=== PATIENT | female | born 1945 | race Caucasian/White ===

== ENCOUNTER 2016-09-19 13:16 | Emergency (ER) | payer MEDICARE, OTHER ==
[2016-09-19 14:31] LABS: BASO # 0.1 K/mm3 (0.0-0.2); BASO % 1.4 % (0.0-1.0); EOS # 0.1 K/mm3 (0.0-0.50); LARGE UNSTAINED CELL # 0.3 K/mm3 (0.0-0.4); LARGE UNSTAINED CELL % 3.3 % (0.0-4.0); LYMPH # 1.8 K/mm3 (1.5-4.5); LYMPH % 19.7 % (24.0-44.0); MEAN CORPUSCULAR HEMOGLOBIN 28.7 pg (27.0-33.0); MEAN CORPUSCULAR HGB CONC 33.1 g/dl (32.0-36.5); MEAN CORPUSCULAR VOLUME 86.6 fl (80.0-96.0); MONO # 0.6 K/mm3 (0.0-0.8); NEUTROPHILS # 5.1 K/mm3 (1.8-7.7); NEUTROPHILS % 66.5 % (36.0-66.0); PLATELET COUNT, AUTOMATED 268 k/mm3 (150-450); RED CELL DISTRIBUTION WIDTH 13.9 % (11.5-14.5); WHITE BLOOD COUNT 7.7 K/mm3 (4.0-10.0)
[2016-09-19 14:44] LABS: ANION GAP 9 MEQ/L (8-16); BLOOD UREA NITROGEN 12 MG/DL (7-18); CALCIUM LEVEL 8.8 MG/DL (8.8-10.2); CARBON DIOXIDE LEVEL 30 MEQ/L (21-32); CHLORIDE LEVEL 102 MEQ/L (98-107); CREATININE FOR GFR 0.98 MG/DL (0.55-1.02); FREE T4 1.12 NG/DL (0.76-1.46); GLOMERULAR FILTRATION RATE 59.9 (>45); GLUCOSE, FASTING 91 MG/DL (80-110); POTASSIUM SERUM 3.9 MEQ/L (3.5-5.1); SODIUM LEVEL 141 MEQ/L (136-145)
--- NOTE | 2016-09-19 14:45 | REP ---
HEAD CT WITHOUT CONTRAST: HISTORY: Trauma. FINDINGS: Digital frontal and lateral city maintenance manager views are unremarkable. Bone window settings demonstrate an intact bony calvarium. No skull fracture is seen. The visualized paranasal sinuses are clear. No intraorbital abnormality is appreciated. On soft tissue window settings, the lateral, third, and fourth ventricles are normal in size and position. The gaytan-white differentiation pattern is normal above and below the tentorium. There is no evidence of intracranial hemorrhage. No extra-axial fluid collection is seen. IMPRESSION: Negative noncontrast head CT. Signed by Aguilar Reddy MD 09/19/2016 07:28 P
--- NOTE | 2016-09-19 14:49 | REP ---
MAXILLOFACIAL CT STUDY WITHOUT CONTRAST: HISTORY: Trauma. TECHNIQUE: Helical scanning is acquired and contiguous [address] images are acquired. The scan range is from the top of the frontal sinuses through the mandible. Coronal and sagittal multiplanar reformation images are generated as well. CT FINDINGS: There is right frontal soft tissue scalp swelling. No frontal bone or frontal sinus fracture is seen. The paranasal sinuses are clear. The zygomatic arches are intact. Orbital margins are normal. No nasal bone fracture is seen. Inferior maxillary spine is intact. No mandibular fracture is seen. There is no evidence of intraorbital, facial or intracranial hematoma. IMPRESSION: Right frontal scalp swelling. No fracture seen. Signed by Aguilar Reddy MD 09/19/2016 07:28 P
--- NOTE | 2016-09-19 19:44 | EDDOCDS ---
Nurse's Notes [facility] Name: Aileen Cervantes Age: 71 yrs Sex: Female : 1945 Arrival Date: 09/19/2016 Time: 13:16 Bed 19 Private MD: Mamie Tiwari PA-C Diagnosis: Syncope and collapse-vasovagal episode;Dehydration-resolved;Contusion of scalp-right forehead;Contusion of nose;Abrasion of nose;Acute upper respiratory infection, unspecified-viral Presentation: 09/19 13:29 Presenting complaint: Patient states: URI symptoms since around [place]. taking OTC srm meds. this am [id number] felt nauseated, went in to the bathroom and felt dizzy and went down. passed out a second time within minutes and hit head. abrasion to bridge of nose, forehead right side and neck pain. not n blood thinners. Adult Sepsis Screening: The patient does not have new or worsening altered mentation. Patient's respiratory rate is less than 22. Systolic blood pressure is greater than 100. Patient has a qSOFA score of 0- Negative Sepsis Screen. Suicide/Homicide risk assessment- the patient denies having any suicidal and/or homicidal ideations and does not present with any other emotional, behavioral or mental health complaints. Status: Patient is not a financial services sales representative or dependent. Transition of care: patient was not received from another setting of care. 13:29 Acuity: FABIAN Level 3 srm 13:29 Method Of Arrival: Wheelchair srm 13:31 Red Flag criteria, wheelchair provided, room number obtained, charge nurse notified, to [facility] place in room 19 after triage complete. Triage Assessment: 13:36 General: Appears in no apparent distress, Behavior is appropriate for age, cooperative. srm Pain: Pain currently is 6 out of 10 on a pain scale. Neurological: Level of Consciousness is awake, alert, Oriented to person, place, time, Moves all extremities. Full function Speech is normal, Facial symmetry appears normal. Historical: - Allergies: Keflex; Morphine; - Home Meds: 1. levothyroxine 88 mcg Oral cap 1 cap once daily 2. aspirin 81 mg Oral chew 1 tab once daily 3. triametarene- hctz 37.5mg/25mg daily 4. allopurinol 100 mg Oral tab once daily 5. Nexium 40 mg Oral cpDR 1 cap once daily 6. atorvastatin 40 mg oral tab 1 tab once daily 7. colarys 0.6mg as needed - PMHx: Thyroid problem; Hypertension; Pancreatitis; GERD; - PSHx: Cholecystectomy; - The history from nurses notes was reviewed: and I agree with what is documented. - Social history: Smoking status: Patient states was never smoker of tobacco. No barriers to communication noted, The patient speaks fluent Romansh, Speaks appropriately for age. - : The pt / caregiver states he / she is not on anticoagulants. Home medication list is obtained from the patient. - Hospitalizations: : No recent hospitalization is reported. - Exposure Risk Screening:: None identified. - Immunization history:: All immunizations up-to-date. - Family history: Not pertinent. - Social history:: the patient is a non-smoker, the patient does not drink alcohol. Assessment: 14:11 General: Appears intermittent cough noted. Neurological: Level of Consciousness is ms2 awake, alert, obeys commands, Oriented to person, place, time, Pupils are PERRLA. Cardiovascular: Rhythm is sinus tachycardia No ectopy. Respiratory: No deficits noted. Airway is patent Respiratory effort is even, unlabored, Respiratory pattern is regular, symmetrical. Derm: No deficits noted. Skin is pink, warm & dry. 15:38 Adult Sepsis Screening: The patient does not have new or worsening altered mentation. ms2 Patient's respiratory rate is less than 22. Systolic blood pressure is greater than 100. Patient has a qSOFA score of 0- Negative Sepsis Screen. General: Appears in no apparent distress. Neurological: No deficits noted. Cardiovascular: Rhythm is sinus tachycardia. Respiratory: No deficits noted. Derm: Skin is pink, warm & dry. Musculoskeletal: No deficits noted. 16:24 General: Appears in no apparent distress, comfortable, back from BR. Behavior is ms2 cooperative, pleasant. Pain: Denies pain. Neurological: Level of Consciousness is awake, alert, obeys commands. Respiratory: No deficits noted. Airway is patent Respiratory effort is even, unlabored, Respiratory pattern is regular, symmetrical. GI: Abdomen is flat, non- distended. Derm: Skin is pink, warm & dry. Musculoskeletal: Range of motion intact in all extremities. Vital Signs: 13:19 BP 156 / 84; Pulse 113; Resp 18; Temp 98.9; Pulse Ox 98% on R/A; Weight 75.3 kg; Height elp 5 ft. 6 in. (167.64 cm); Pain 6/10; 15:38 BP 151 / 73 Standing; Pulse 116; Resp 20 S; ms2 15:38 BP 155 / 83 Supine; Pulse 99; Resp 20 S; Pulse Ox 95% on R/A; ms2 15:38 BP 146 / 67 Sitting; Pulse 110; Resp 20 S; Pulse Ox 94% on R/A; ms2 17:40 BP 161 / 82; Pulse 96; Resp 20 S; Pulse Ox 96% on R/A; ms2 13:19 Body Mass Index 26.79 (75.30 kg, 167.64 cm) elp 15:38 dr coelho aware of vs ms2 Vitals: 13:19 Log In Time: September 19, 2016 at 13:17. RN notified that patient meets Red Flag elp criteria. ED Course: 13:18 Patient visited by Val Wallace PCA. elp 13:18 Mamie Tiwari is Private Physician. elp 13:18 Patient moved to Waiting elp 13:20 Patient visited by Val Wallace PCA. elp 13:23 Patient moved to Pre RCE elp 13:32 Triage Initiated srm 13:36 Kody Feliciano,RN is Primary Nurse. srm 13:36 Patient moved to 19 srm 14:06 Joel Coelho MD is Attending Physician. pc 14:10 Patient visited by Kody Feliciano RN. ms2 14:10 Inserted saline lock: 20 gauge in right antecubital area The patient tolerated the ms2 procedure well. No procedures done that require assistance. 14:11 The patient / caregiver is instructed regarding the plan of care and ED course. Cardiac ms2 monitor on. Pulse ox on. NIBP on. 14:18 Patient visited by Joel Coelho MD. pc 14:25 Basic Metabolic Profile Sent. ms2 14:25 CBC with Diff Sent. ms2 14:25 Cardiac Injury Profile Sent. ms2 14:25 Troponin Sent. ms2 14:25 TSH with Free T4 Sent. ms2 14:43 -Influenza A&B Rapid Antigen - Nose Sent. ms2 14:50 EKG done. (by ED staff). Reviewed by Joel Coelho MD. rn1 15:29 CT Head Without Contrast Returned. EDMS 15:29 CT Maxilofacial W/out Contrast Returned. EDMS 15:38 Patient visited by Kody Feliciano RN. ms2 15:38 The patient / caregiver is instructed regarding the plan of care and ED course. Cardiac ms2 monitor on. Pulse ox on. NIBP on. 15:38 IV is intact, is free of redness or swelling. ms2 16:27 The patient / caregiver is instructed regarding the plan of care and ED course. Cardiac ms2 monitor on. Pulse ox on. NIBP on. 16:27 IV is patent, is intact, is free of redness or swelling. solution is infusing as ms2 ordered. 16:29 Patient visited by Kody Feliciano RN. ms2 16:34 Patient name changed from Aileen\S\\S\Calladine\S\ to Aileen\S\ \S\Calladine. EDMS 16:35 [facility] [place] Payment Agreement was scanned into [employer] and attached to record. zo 17:40 Patient visited by Kody Feliciano RN. ms2 18:56 Patient visited by Joel Coelho MD. pc 19:04 Mamie Tiwari RPA-C is Referral Physician. pc 19:07 Patient visited by Keith Joseph PCA. [id number] Administered Medications: 16:18 Drug: NS 0.9% 1000 ml [sodium chloride 0.9 % intravenous solution] Route: IV; Rate: ms2 bolus; Site: right antecubital; Intake: 17:40 PO: 0.00ml; IV: 1000.00ml (NS); Total: 1000.00ml. ms2 17:40 voided x1 in ed ms2 Order Results: Lab Order: Basic Metabolic Profile; SPEC'M 09/19/16 13:55 Test: GLUCOSE, FASTING; Value: 91; Range: 80-110; Units: MG/DL; Status: F Test: BLOOD UREA NITROGEN; Value: 12; Range: 7-18; Units: MG/DL; Status: F Test: CREATININE FOR GFR; Value: 0.98; Range: 0.55-1.02; Units: MG/DL; Status: F Test: GLOMERULAR FILTRATION RATE; Value: 59.9; Range: >45; Status: F Test: SODIUM LEVEL; Value: 141; Range: 136-145; Units: MEQ/L; Status: F Test: POTASSIUM SERUM; Value: 3.9; Range: 3.5-5.1; Units: MEQ/L; Status: F Test: CHLORIDE LEVEL; Value: 102; Range: 98-107; Units: MEQ/L; Status: F Test: CARBON DIOXIDE LEVEL; Value: 30; Range: 21-32; Units: MEQ/L; Status: F Test: ANION GAP; Value: 9; Range: 8-16; Units: MEQ/L; Status: F Test: CALCIUM LEVEL; Value: 8.8; Range: 8.8-10.2; Units: MG/DL; Status: F Test Note: ; Units are mL/min/1.73 m2 Chronic Kidney Disease Staging per NKF: Stage I & II GFR >=60 Normal to Mildly Decreased Stage III GFR 30-59 Moderately Decreased Stage IV GFR 15-29 Severely Decreased Stage V GFR <15 Very Little GFR Left ESRD GFR <15 on COIL INSPECTOR Lab Order: CBC with Diff; SPEC'M 09/19/16 13:55 Test: WHITE BLOOD COUNT; Value: 7.7; Range: 4.0-10.0; Units: K/mm3; Status: F Test: RED BLOOD COUNT; Value: 5.25; Range: 4.00-5.40; Units: M/mm3; Status: F Test: HEMOGLOBIN; Value: 15.1; Range: 12.0-16.0; Units: g/dl; Status: F Test: HEMATOCRIT; Value: 45.5; Range: 36.0-47.0; Units: %; Status: F Test: MEAN CORPUSCULAR VOLUME; Value: 86.6; Range: 80.0-96.0; Units: fl; Status: F Test: MEAN CORPUSCULAR HEMOGLOBIN; Value: 28.7; Range: 27.0-33.0; Units: pg; Status: F Test: MEAN CORPUSCULAR HGB CONC; Value: 33.1; Range: 32.0-36.5; Units: g/dl; Status: F Test: RED CELL DISTRIBUTION WIDTH; Value: 13.9; Range: 11.5-14.5; Units: %; Status: F Test: PLATELET COUNT, AUTOMATED; Value: 268; Range: 150-450; Units: k/mm3; Status: F Test: NEUTROPHILS %; Value: 66.5; Range: 36.0-66.0; Abnormal: Above high normal; Units: %; Status: F Test: LYMPH %; Value: 19.7; Range: 24.0-44.0; Abnormal: Below low normal; Units: %; Status: F Test: MONO %; Value: 8.0; Range: 0.0-5.0; Abnormal: Above high normal; Units: %; Status: F Test: EOS %; Value: 1.0; Range: 0.0-3.0; Units: %; Status: F Test: BASO %; Value: 1.4; Range: 0.0-1.0; Abnormal: Above high normal; Units: %; Status: F Test: LARGE UNSTAINED CELL %; Value: 3.3; Range: 0.0-4.0; Units: %; Status: F Test: NEUTROPHILS #; Value: 5.1; Range: 1.8-7.7; Units: K/mm3; Status: F Test: LYMPH #; Value: 1.8; Range: 1.5-4.5; Units: K/mm3; Status: F Test: MONO #; Value: 0.6; Range: 0.0-0.8; Units: K/mm3; Status: F Test: EOS #; Value: 0.1; Range: 0.0-0.50; Units: K/mm3; Status: F Test: BASO #; Value: 0.1; Range: 0.0-0.2; Units: K/mm3; Status: F Test: LARGE UNSTAINED CELL #; Value: 0.3; Range: 0.0-0.4; Units: K/mm3; Status: F Lab Order: Cardiac Injury Profile; SPEC'M 09/19/16 13:55 Test: CPK CREATINE PHOSPHOKINASE; Value: 211; Range: 26-192; Abnormal: Above high normal; Units: U/L; Status: F Test: CK-MB VALUE MASS; Value: 2.4; Range: 0.0-3.6; Units: NG/ML; Status: F Test: MB/CK RELATIVE INDEX; Value: 1.13; Range: < OR =4; Status: F Test Note: ; DIAGNOSIS CRITERIA MMB ng/ml Relative Index (RI) NON-AMI < or = 5 N/A IGLESIAS ZONE > 5 < or = 4 AMI > 5 > 4 Lab Order: Troponin; SPEC'M 09/19/16 13:55 Test: TROPONIN I; Value: < 0.02; Range: < 0.10; Units: NG/ML; Status: F Test Note: ; Troponin I Reference Interval for [employer]ens [place] LOCI: 99th Percentile= 0.00-0.045 ng/ml Risk Stratification: <= 0.10 ng/ml Decreased Risk for Adverse Clinical Events. 0.10-1.50 ng/ml Increased Risk for Adverse Clinical Events. Evaluation of additional criterion and/or repeat testing in 2-6 hours is suggested to rule out myocardial damage. >= 1.50 ng/ml Indicative of Myocardial Injury. Lab Order: -Influenza A&B Rapid Antigen - Nose; SPEC'M 09/19/16 14:43 Test: INFLUENZA A RAPID SCR by ICA; Value: INFLUENZA A RESULTS NEGATIVE; Status: F Test: INFLUENZA A RAPID SCR by ICA; Value: Comments:; Status: F Test: INFLUENZA B RAPID SCR by ICA; Value: INFLUENZA B RESULTS NEGATIVE; Status: F Test Note: ; The Influenza test is a direct rapid immunoassay for the qualitative detection of Influenza viral antigen. Cell culture (Viral Culture) testing should be considered to confirm NEGATIVE results and to assist in detecting other viruses that can provide similar clinical symptoms. Please contact the lab within 24 hours ([phone]) if confirmatory testing is desired. Lab Order: TSH with Free T4; SPEC'M 09/19/16 13:55 Test: THYROID STIMULATING HORMONE; Value: 2.370; Range: 0.358-3.740; Units: uIU/ML; Status: F Test: FREE T4; Value: 1.12; Range: 0.76-1.46; Units: NG/DL; Status: F Radiology Order: CT Head Without Contrast Test: CT Head Without Contrast REASON FOR EXAMINATION: Trauma; ; HEAD CT WITHOUT CONTRAST:; ; HISTORY: Trauma.; ; FINDINGS: Digital frontal and lateral veneer measurer views are unremarkable. Bone window; settings demonstrate an intact bony calvarium. No skull fracture is seen. The; visualized paranasal sinuses are clear. No intraorbital abnormality is; appreciated.; ; On soft tissue window settings, the lateral, third, and fourth ventricles are; normal in size and position. The iglesias-white differentiation pattern is normal; above and below the tentorium. There is no evidence of intracranial hemorrhage.; No extra-axial fluid collection is seen.; ; IMPRESSION:; Negative noncontrast head CT.; ; Unreviewed; Radiology Order: CT Maxilofacial W/out Contrast Test: CT Maxilofacial W/out Contrast REASON FOR EXAMINATION: Trauma; ; MAXILLOFACIAL CT STUDY WITHOUT CONTRAST:; ; HISTORY: Trauma.; ; TECHNIQUE: Helical scanning is acquired and contiguous [address]; images are acquired. The scan range is from the top of the frontal sinuses; through the mandible. Coronal and sagittal multiplanar reformation images are; generated as well.; ; CT FINDINGS: There is right frontal soft tissue scalp swelling. No frontal bone; or frontal sinus fracture is seen. The paranasal sinuses are clear. The zygomatic; arches are intact. Orbital margins are normal. No nasal bone fracture is seen.; Inferior maxillary spine is intact. No mandibular fracture is seen. There is no; evidence of intraorbital, facial or intracranial hematoma.; ; IMPRESSION:; Right frontal scalp swelling. No fracture seen.; ; ; ; Unreviewed; Outcome: 19:04 Discharge ordered by Provider. pc 19:43 Patient left the ED. ms2 Signatures: Dispatcher [employer] EDMS Joel Coelho MD MD Kody Feliciano,SHER RN ms2 Ruth Ann Roberts RN RN srm Olin, Zoeann zo B[place]roft, Kristopher, BUFFING AND POLISHING WHEEL REPAIRER BUFFING AND POLISHING WHEEL REPAIRER kb5 Ashly Velez RN RN [facility] Val Wallace, BUFFING AND POLISHING WHEEL REPAIRER BUFFING AND POLISHING WHEEL REPAIRER ismaelp Allen Kwok rn1 Corrections: (The following items were deleted from the chart) 16:24 16:18 NS 0.9% 1000 ml IV at bolus in left antecubital ms2 ms2 MTDD
--- NOTE | 2016-09-19 19:44 | EDDOCDS ---
Physician Documentation [facility] Name: Aileen Cervantes Age: 71 yrs Sex: Female : 1945 Arrival Date: 09/19/2016 Time: 13:16 Bed 19 Private MD: Mamie Tiwari PA-C Disposition: 09/19 16:13 Critical Care: Critical care not applicable. pc Disposition: 09/19/16 19:04 Discharged to Home/Self Care. Impression: Syncope and collapse - vasovagal episode, Dehydration - resolved, Contusion of scalp - right forehead, Contusion of nose, Abrasion of nose, Acute upper respiratory infection, unspecified - viral. - Condition is Stable. - Discharge Instructions: Contusion, Syncope, Upper Respiratory Infection, Adult, Viral Infections. - Medication Reconciliation, Local Pharmacy Hours form. - Follow up: Mamie Tiwari RPA-C; When: Call to arrange an appointment; Reason: Continuance of care. - Problem is new. - Symptoms have improved. HPI: 14:48 This 71 yrs old Female presents to ER via Wheelchair with complaints of pc Syncope. 14:48 The history is obtained from the patient, the patient's spouse. She has had a cough for pc 4 days, using multiple OTC meds, believing she caught it from her ill granddaughter. (recent admission and had "2 viruses on a test".) She awoke feeling nauseated this morning, after not having any appetite yesterday and not eating anything. She walked into the bathroom and felt like she would be pass out and fell forward onto the floor, striking a large plant. She had a brief LOC but remembers the entire incident. Her spouse help her back up to her feet and she took 2 steps back towards her bed and fell face first onto the floor without defensive reactions. She struck her face on the floor and had a brief LOC of"seconds". She was assisted back into bed and has been fine since, except for her non-productive cough and her forehead contusion. Her PCP directed her here. At their worst, the symptoms were mild. In the emergency department, the symptoms are unchanged. The patient has not experienced similar symptoms in the past. The patient has been recently seen by their primary care provider. Historical: - Allergies: Keflex; Morphine; - Home Meds: 1. levothyroxine 88 mcg Oral cap 1 cap once daily 2. aspirin 81 mg Oral chew 1 tab once daily 3. triametarene- hctz 37.5mg/25mg daily 4. allopurinol 100 mg Oral tab once daily 5. Nexium 40 mg Oral cpDR 1 cap once daily 6. atorvastatin 40 mg oral tab 1 tab once daily 7. colarys 0.6mg as needed - PMHx: Thyroid problem; Hypertension; Pancreatitis; GERD; - PSHx: Cholecystectomy; - The history from nurses notes was reviewed: and I agree with what is documented. - Social history: Smoking status: Patient states was never smoker of tobacco. No barriers to communication noted, The patient speaks fluent Estonian, Speaks appropriately for age. - : The pt / caregiver states he / she is not on anticoagulants. Home medication list is obtained from the patient. - Hospitalizations: : No recent hospitalization is reported. - Exposure Risk Screening:: None identified. - Immunization history:: All immunizations up-to-date. - Family history: Not pertinent. - Social history:: the patient is a non-smoker, the patient does not drink alcohol. ROS: 14:48 All systems are negative except as listed. pc Exam: 14:48 General Appearance: no acute distress, alert. pc 14:48 EENT: small hematoma above the right eyebrow nasal contusion and abrasion. No septal hematoma. No forehead bony pain, no nasal bone pain, no facial pain.. 14:48 Neck: The exam reveals no acute abnormalities. ROM is normal and painless. No nuchal rigidity is noted.. Nexus criteria for suspected c-spine injury is negative. 14:48 Respiratory: no respiratory distress, chest non-tender, Breath sounds: rhonchi, in the left posterior lower lobe. 14:48 CVS: regular rhythm, normal S1 and S2, no murmurs, strong peripheral pulses, the patient is tachycardic, at 110 bpm. 14:48 Abdomen: soft, non-tender, no organomegaly, normal bowel sounds. 14:48 Back: normal inspection. 14:48 Skin: skin color is normal, warm, dry. 14:48 Extremities: The extremities have a grossly normal appearance, are non-tender, without acute ROM abnormalities. 14:48 Neuro: oriented x 3, cranial nerves normal as tested, no motor deficits, no sensory deficits. 14:48 Psych: normal mood. Vital Signs: 13:19 BP 156 / 84; Pulse 113; Resp 18; Temp 98.9; Pulse Ox 98% on R/A; Weight 75.3 kg / elp 166.01 lbs; Height 5 ft. 6 in. (167.64 cm); Pain 6/10; 15:38 BP 151 / 73 Standing; Pulse 116; Resp 20 S; ms2 15:38 BP 155 / 83 Supine; Pulse 99; Resp 20 S; Pulse Ox 95% on R/A; ms2 15:38 BP 146 / 67 Sitting; Pulse 110; Resp 20 S; Pulse Ox 94% on R/A; ms2 17:40 BP 161 / 82; Pulse 96; Resp 20 S; Pulse Ox 96% on R/A; ms2 13:19 Body Mass Index 26.79 (75.30 kg, 167.64 cm) elp 15:38 dr coelho aware of vs ms2 MDM: 14:20 Regional Engagement Consultant/Pulse Ox/q 15 min VS ordered. pc 14:20 IV Saline Lock ordered. pc 14:20 Orthostatic VS ordered. pc 14:20 Rhythm Strip to chart ordered. pc 14:20 Obtain sample by nasopharyngeal swab ordered. pc 14:21 Basic Metabolic Profile Ordered. EDMS 14:21 CBC with Diff Ordered. EDMS 14:21 Cardiac Injury Profile Ordered. EDMS 14:21 Troponin Ordered. EDMS 14:21 TSH with Free T4 Ordered. EDMS 14:21 -Influenza A&B Rapid Antigen - Nose Ordered. EDMS 14:21 CT Head Without Contrast Ordered. EDMS 14:22 ECG WITH READING ER PHYS+CARDIAG ordered. EDMS 14:22 CT Maxilofacial W/out Contrast Ordered. EDMS 14:22 Chest, 2 View (pa\\E\\lat) Ordered. EDMS 14:48 Differential Diagnosis: vasovagal syncope; URI r/o pneumonia. Plan: labs, EKG, imaging. pc Test interpretation: EKG. 15:10 CBC with Diff Reviewed. pc 15:10 Cardiac Injury Profile Reviewed. pc 15:10 Basic Metabolic Profile Reviewed. pc 15:10 Troponin Reviewed. pc 15:10 -Influenza A&B Rapid Antigen - Nose Reviewed. pc 15:10 TSH with Free T4 Reviewed. pc 16:13 Data reviewed: old medical records, vital signs, nurses notes, EKG(s), lab test pc results, all radiology studies and available results. Test interpretation: LAB - all labs as ordered have been reviewed, interpreted and considered in the overall management of the clinical presentation; X-RAY - interpreted by Radiologist and personally reviewed, 2 view chest, no acute disease, interpreted by Radiologist and personally reviewed, Head CT; mild forehead STS, Maxillo-Facial CT; normal. 16:15 CT Head Without Contrast Reviewed. pc 16:15 CT Maxilofacial W/out Contrast Reviewed. pc 16:15 NS 0.9% 1000 ml IV at bolus once ordered. pc 16:21 Financial registration complete. zo 16:35 [facility] Payment Agreement was scanned into [employer] and attached to record. zo 19:01 The patient has been re-examined and re-evaluated. The patient's symptoms have markedly pc improved after treatment. Disposition: The historical points, examination findings, and any diagnostic results supporting the provided diagnosis, were discussed with the patient or legal guardian. The need for outpatient follow up with the provider listed on their discharge instructions was discussed. They were encouraged to return to [facility], or the nearest ED, if symptoms worsen/persist, or for any other questions/concerns. EC:48 Rate is 108 beats/min. Rhythm is regular, Sinus tachycardia. QRS [place] is Normal. DC pc interval is normal. QRS interval is normal. QT interval is normal. No Q waves. T waves are Normal. No ST changes noted. Clinical impression: Sinus tachycardia and PRWP. Administered Medications: 16:18 Drug: NS 0.9% 1000 ml [sodium chloride 0.9 % intravenous solution] Route: IV; Rate: ms2 bolus; Site: right antecubital; Signatures: Dispatcher [employer] EDMS Joel Coelho MD MD Kody Feliciano RN RN ms2 Ruth Ann Roberts RN RN [facility] Roger Menjivar The chart was reviewed and I authenticate all verbal orders and agree with the evaluation and treatment provided.Corrections: (The following items were deleted from the chart) 16:15 16:13 The patient has been re-examined and re-evaluated. The clinical presentation did pc not require any ED treatment or interventions. pc 19:01 16:13 Disposition: The historical points, examination findings, and any diagnostic pc results supporting the provided diagnosis, were discussed with the patient or legal guardian. The need for outpatient follow up with the provider listed on their discharge instructions was discussed. They were encouraged to return to [facility], or the nearest ED, if symptoms worsen/persist, or for any other questions/concerns. Attachments: 16:35 [facility] Payment Agreement zo MTDD
--- NOTE | 2016-09-20 08:36 | ECGEPIP ---
Stationary ECG Study [facility] - ED Test Date: 2016-09-19 Pat Name: EDU KRAFT Department: Room: - Gender: F Online Activist: rn : 1945 Requested By: Joel Espana Order Number: [id number] Reading MD: Magda Clemens Measurements Intervals [place] Rate: 108 P: 41 NE: 124 QRS: 22 QRSD: 89 T: 76 QT: 330 QTc: 443 Interpretive Statements SINUS TACHYCARDIA POSSIBLE LEFT ATRIAL ENLARGEMENT SEPTAL MYOCARDIAL INFARCTION, PROBABLY OLD NSTTW ABNORMALITY NO PRIOR FOR COMPARISON Electronically Signed On 09-20-2016 8:35:33 EST by Magda Clemens
--- NOTE | 2016-09-20 14:43 | REP ---
PA and lateral chest radiograph 09/19/2016 Indication: Cough Comparison: PA and lateral chest 02/17/2006 Findings: The cardiomediastinal silhouette is normal. Lungs are clear bilaterally. Bones and soft tissues are within normal limits. Impression: No acute cardiopulmonary process Signed by Shira Mancuso MD 09/20/2016 02:35 P
--- NOTE | 2016-09-23 09:46 | EDDOCDS ---
Nurse's Notes [facility] Name: Edu Cervantes Age: 71 yrs Sex: Female : 1945 Arrival Date: 09/19/2016 Time: 13:16 Bed 19 Private MD: Mamie Tiwari PA-C Diagnosis: Syncope and collapse-vasovagal episode;Dehydration-resolved;Contusion of scalp-right forehead;Contusion of nose;Abrasion of nose;Acute upper respiratory infection, unspecified-viral Presentation: 09/19 13:29 Presenting complaint: Patient states: URI symptoms since around [place]. taking OTC srm meds. this am [id number] felt nauseated, went in to the bathroom and felt dizzy and went down. passed out a second time within minutes and hit head. abrasion to bridge of nose, forehead right side and neck pain. not n blood thinners. Adult Sepsis Screening: The patient does not have new or worsening altered mentation. Patient's respiratory rate is less than 22. Systolic blood pressure is greater than 100. Patient has a qSOFA score of 0- Negative Sepsis Screen. Suicide/Homicide risk assessment- the patient denies having any suicidal and/or homicidal ideations and does not present with any other emotional, behavioral or mental health complaints. Status: Patient is not a special services coordinator or dependent. Transition of care: patient was not received from another setting of care. 13:29 Acuity: FABIAN Level 3 srm 13:29 Method Of Arrival: Wheelchair srm 13:31 Red Flag criteria, wheelchair provided, room number obtained, charge nurse notified, to [facility] place in room 19 after triage complete. Triage Assessment: 13:36 General: Appears in no apparent distress, Behavior is appropriate for age, cooperative. srm Pain: Pain currently is 6 out of 10 on a pain scale. Neurological: Level of Consciousness is awake, alert, Oriented to person, place, time, Moves all extremities. Full function Speech is normal, Facial symmetry appears normal. Historical: - Allergies: Keflex; Morphine; - Home Meds: 1. levothyroxine 88 mcg Oral cap 1 cap once daily 2. aspirin 81 mg Oral chew 1 tab once daily 3. triametarene- hctz 37.5mg/25mg daily 4. allopurinol 100 mg Oral tab once daily 5. Nexium 40 mg Oral cpDR 1 cap once daily 6. atorvastatin 40 mg oral tab 1 tab once daily 7. colarys 0.6mg as needed - PMHx: Thyroid problem; Hypertension; Pancreatitis; GERD; - PSHx: Cholecystectomy; - The history from nurses notes was reviewed: and I agree with what is documented. - Social history: Smoking status: Patient states was never smoker of tobacco. No barriers to communication noted, The patient speaks fluent Icelandic, Speaks appropriately for age. - : The pt / caregiver states he / she is not on anticoagulants. Home medication list is obtained from the patient. - Hospitalizations: : No recent hospitalization is reported. - Exposure Risk Screening:: None identified. - Immunization history:: All immunizations up-to-date. - Family history: Not pertinent. - Social history:: the patient is a non-smoker, the patient does not drink alcohol. Assessment: 14:11 General: Appears intermittent cough noted. Neurological: Level of Consciousness is ms2 awake, alert, obeys commands, Oriented to person, place, time, Pupils are PERRLA. Cardiovascular: Rhythm is sinus tachycardia No ectopy. Respiratory: No deficits noted. Airway is patent Respiratory effort is even, unlabored, Respiratory pattern is regular, symmetrical. Derm: No deficits noted. Skin is pink, warm & dry. 15:38 Adult Sepsis Screening: The patient does not have new or worsening altered mentation. ms2 Patient's respiratory rate is less than 22. Systolic blood pressure is greater than 100. Patient has a qSOFA score of 0- Negative Sepsis Screen. General: Appears in no apparent distress. Neurological: No deficits noted. Cardiovascular: Rhythm is sinus tachycardia. Respiratory: No deficits noted. Derm: Skin is pink, warm & dry. Musculoskeletal: No deficits noted. 16:24 General: Appears in no apparent distress, comfortable, back from BR. Behavior is ms2 cooperative, pleasant. Pain: Denies pain. Neurological: Level of Consciousness is awake, alert, obeys commands. Respiratory: No deficits noted. Airway is patent Respiratory effort is even, unlabored, Respiratory pattern is regular, symmetrical. GI: Abdomen is flat, non- distended. Derm: Skin is pink, warm & dry. Musculoskeletal: Range of motion intact in all extremities. 17:40 General: Appears in no apparent distress, comfortable, Behavior is cooperative, ms2 remains with pt. Neurological: No deficits noted. Cardiovascular: Rhythm is sinus tachycardia. Respiratory: Respiratory effort is even, unlabored. Derm: Skin is pink, warm & dry. 18:20 General: Appears in no apparent distress. Neurological: No deficits noted. ms2 Cardiovascular: Rhythm is sinus tachycardia. Respiratory: No deficits noted. Derm: Skin is pink, warm & dry. Musculoskeletal: Range of motion intact in all extremities. 19:43 Adult Sepsis Screening: The patient does not have new or worsening altered mentation. ms2 Patient's respiratory rate is less than 22. Systolic blood pressure is greater than 100. Patient has a qSOFA score of 0- Negative Sepsis Screen. General: Appears in no apparent distress. Neurological: Level of Consciousness is awake, alert, obeys commands. Respiratory: No deficits noted. Airway is patent Respiratory effort is even, unlabored, Respiratory pattern is regular, symmetrical. Derm: Skin is pink, warm & dry. Musculoskeletal: Range of motion intact in all extremities. 19:43 General: any monitors strips dc'd by city secretary --see ekg for rhythm during ED stay. ms2 Vital Signs: 13:19 BP 156 / 84; Pulse 113; Resp 18; Temp 98.9; Pulse Ox 98% on R/A; Weight 75.3 kg; Height elp 5 ft. 6 in. (167.64 cm); Pain 6/10; 15:38 BP 151 / 73 Standing; Pulse 116; Resp 20 S; ms2 15:38 BP 155 / 83 Supine; Pulse 99; Resp 20 S; Pulse Ox 95% on R/A; ms2 15:38 BP 146 / 67 Sitting; Pulse 110; Resp 20 S; Pulse Ox 94% on R/A; ms2 17:40 BP 161 / 82; Pulse 96; Resp 20 S; Pulse Ox 96% on R/A; ms2 19:43 BP 143 / 83; Pulse 98; Resp 20 S; Temp 97.5(T); Pulse Ox 96% on R/A; ms2 13:19 Body Mass Index 26.79 (75.30 kg, 167.64 cm) elp 15:38 dr coelho aware of vs ms2 Vitals: 13:19 Log In Time: September 19, 2016 at 13:17. RN notified that patient meets Red Flag elp criteria. ED Course: 13:18 Patient visited by Val Wallace PCA. elp 13:18 Mamie Tiwari is Private Physician. elp 13:18 Patient moved to Waiting elp 13:20 Patient visited by Val Wallace PCA. elp 13:23 Patient moved to Pre RCE elp 13:32 Triage Initiated srm 13:36 Kody Feliciano,RN is Primary Nurse. srm 13:36 Patient moved to 19 srm 14:06 Joel Coelho MD is Attending Physician. pc 14:10 Patient visited by Kody Feliciano RN. ms2 14:10 Inserted saline lock: 20 gauge in right antecubital area The patient tolerated the ms2 procedure well. No procedures done that require assistance. 14:11 The patient / caregiver is instructed regarding the plan of care and ED course. Cardiac ms2 monitor on. Pulse ox on. NIBP on. 14:18 Patient visited by Joel Coelho MD. pc 14:25 Basic Metabolic Profile Sent. ms2 14:25 CBC with Diff Sent. ms2 14:25 Cardiac Injury Profile Sent. ms2 14:25 Troponin Sent. ms2 14:25 TSH with Free T4 Sent. ms2 14:43 -Influenza A&B Rapid Antigen - Nose Sent. ms2 14:50 EKG done. (by ED staff). Reviewed by Joel Coelho MD. rn1 15:29 CT Head Without Contrast Returned. EDMS 15:29 CT Maxilofacial W/out Contrast Returned. EDMS 15:38 Patient visited by Kody Feliciano RN. ms2 15:38 The patient / caregiver is instructed regarding the plan of care and ED course. Cardiac ms2 monitor on. Pulse ox on. NIBP on. 15:38 IV is intact, is free of redness or swelling. ms2 16:27 The patient / caregiver is instructed regarding the plan of care and ED course. Cardiac ms2 monitor on. Pulse ox on. NIBP on. 16:27 IV is patent, is intact, is free of redness or swelling. solution is infusing as ms2 ordered. 16:29 Patient visited by Kody Feliciano RN. ms2 16:34 Patient name changed from Edu\S\\S\Calladine\S\ to Edu\S\ \S\Calladine. EDMS 16:35 [facility] Payment Agreement was scanned into [employer] and attached to record. zo 17:40 Patient visited by Kody Feliciano RN. ms2 17:40 The patient / caregiver is instructed regarding the plan of care and ED course. Cardiac ms2 monitor on. Pulse ox on. NIBP on. 17:40 IV is intact, is free of redness or swelling. ms2 18:20 The patient / caregiver is instructed regarding the plan of care and ED course. Cardiac ms2 monitor on. Pulse ox on. NIBP on. 18:20 IV is intact, is free of redness or swelling. ms2 18:56 Patient visited by Joel Coelho MD. pc 19:04 aMmie Tiwari RPA-C is Referral Physician. pc 19:07 Patient visited by Keith Joseph PCA. kb5 19:40 IV is intact, is free of redness or swelling. ms2 19:43 The patient / caregiver is instructed regarding the plan of care and ED course. monitor ms2 dc'd. 20:17 CT Head Without Contrast Returned. EDMS 20:17 CT Maxilofacial W/out Contrast Returned. EDMS 09/20 08:39 EKG-ADULT Returned. EDMS 12:05 ECG/EKG was scanned into [employer] and attached to record. gb 15:09 Chest, 2 View (pa\E\lat) Returned. EDMS Administered Medications: 09/19 16:18 Drug: NS 0.9% 1000 ml [sodium chloride 0.9 % intravenous solution] Route: IV; Rate: ms2 bolus; Site: right antecubital; Intake: 17:40 PO: 0.00ml; IV: 1000.00ml (NS); Total: 1000.00ml. ms2 19:43 PO: 0.00ml; IV: 0.00ml; Total: 1000.00ml. ms2 17:40 voided x1 in ed ms2 19:43 voided x1 in ed ms2 Order Results: Lab Order: Basic Metabolic Profile; SPEC'M 09/19/16 13:55 Test: GLUCOSE, FASTING; Value: 91; Range: 80-110; Units: MG/DL; Status: F Test: BLOOD UREA NITROGEN; Value: 12; Range: 7-18; Units: MG/DL; Status: F Test: CREATININE FOR GFR; Value: 0.98; Range: 0.55-1.02; Units: MG/DL; Status: F Test: GLOMERULAR FILTRATION RATE; Value: 59.9; Range: >45; Status: F Test: SODIUM LEVEL; Value: 141; Range: 136-145; Units: MEQ/L; Status: F Test: POTASSIUM SERUM; Value: 3.9; Range: 3.5-5.1; Units: MEQ/L; Status: F Test: CHLORIDE LEVEL; Value: 102; Range: 98-107; Units: MEQ/L; Status: F Test: CARBON DIOXIDE LEVEL; Value: 30; Range: 21-32; Units: MEQ/L; Status: F Test: ANION GAP; Value: 9; Range: 8-16; Units: MEQ/L; Status: F Test: CALCIUM LEVEL; Value: 8.8; Range: 8.8-10.2; Units: MG/DL; Status: F Test Note: ; Units are mL/min/1.73 m2 Chronic Kidney Disease Staging per NKF: Stage I & II GFR >=60 Normal to Mildly Decreased Stage III GFR 30-59 Moderately Decreased Stage IV GFR 15-29 Severely Decreased Stage V GFR <15 Very Little GFR Left ESRD GFR <15 on W[place]OW GLAZIER Lab Order: CBC with Diff; SPEC'M 09/19/16 13:55 Test: WHITE BLOOD COUNT; Value: 7.7; Range: 4.0-10.0; Units: K/mm3; Status: F Test: RED BLOOD COUNT; Value: 5.25; Range: 4.00-5.40; Units: M/mm3; Status: F Test: HEMOGLOBIN; Value: 15.1; Range: 12.0-16.0; Units: g/dl; Status: F Test: HEMATOCRIT; Value: 45.5; Range: 36.0-47.0; Units: %; Status: F Test: MEAN CORPUSCULAR VOLUME; Value: 86.6; Range: 80.0-96.0; Units: fl; Status: F Test: MEAN CORPUSCULAR HEMOGLOBIN; Value: 28.7; Range: 27.0-33.0; Units: pg; Status: F Test: MEAN CORPUSCULAR HGB CONC; Value: 33.1; Range: 32.0-36.5; Units: g/dl; Status: F Test: RED CELL DISTRIBUTION WIDTH; Value: 13.9; Range: 11.5-14.5; Units: %; Status: F Test: PLATELET COUNT, AUTOMATED; Value: 268; Range: 150-450; Units: k/mm3; Status: F Test: NEUTROPHILS %; Value: 66.5; Range: 36.0-66.0; Abnormal: Above high normal; Units: %; Status: F Test: LYMPH %; Value: 19.7; Range: 24.0-44.0; Abnormal: Below low normal; Units: %; Status: F Test: MONO %; Value: 8.0; Range: 0.0-5.0; Abnormal: Above high normal; Units: %; Status: F Test: EOS %; Value: 1.0; Range: 0.0-3.0; Units: %; Status: F Test: BASO %; Value: 1.4; Range: 0.0-1.0; Abnormal: Above high normal; Units: %; Status: F Test: LARGE UNSTAINED CELL %; Value: 3.3; Range: 0.0-4.0; Units: %; Status: F Test: NEUTROPHILS #; Value: 5.1; Range: 1.8-7.7; Units: K/mm3; Status: F Test: LYMPH #; Value: 1.8; Range: 1.5-4.5; Units: K/mm3; Status: F Test: MONO #; Value: 0.6; Range: 0.0-0.8; Units: K/mm3; Status: F Test: EOS #; Value: 0.1; Range: 0.0-0.50; Units: K/mm3; Status: F Test: BASO #; Value: 0.1; Range: 0.0-0.2; Units: K/mm3; Status: F Test: LARGE UNSTAINED CELL #; Value: 0.3; Range: 0.0-0.4; Units: K/mm3; Status: F Lab Order: Cardiac Injury Profile; SPEC'M 09/19/16 13:55 Test: CPK CREATINE PHOSPHOKINASE; Value: 211; Range: 26-192; Abnormal: Above high normal; Units: U/L; Status: F Test: CK-MB VALUE MASS; Value: 2.4; Range: 0.0-3.6; Units: NG/ML; Status: F Test: MB/CK RELATIVE INDEX; Value: 1.13; Range: < OR =4; Status: F Test Note: ; DIAGNOSIS CRITERIA MMB ng/ml Relative Index (RI) NON-AMI < or = 5 N/A IGLESIAS ZONE > 5 < or = 4 AMI > 5 > 4 Lab Order: Troponin; SPEC'M 09/19/16 13:55 Test: TROPONIN I; Value: < 0.02; Range: < 0.10; Units: NG/ML; Status: F Test Note: ; Troponin I Reference Interval for [employer] LOCI: 99th Percentile= 0.00-0.045 ng/ml Risk Stratification: <= 0.10 ng/ml Decreased Risk for Adverse Clinical Events. 0.10-1.50 ng/ml Increased Risk for Adverse Clinical Events. Evaluation of additional criterion and/or repeat testing in 2-6 hours is suggested to rule out myocardial damage. >= 1.50 ng/ml Indicative of Myocardial Injury. Lab Order: -Influenza A&B Rapid Antigen - Nose; SPEC'M 09/19/16 14:43 Test: INFLUENZA A RAPID SCR by ICA; Value: INFLUENZA A RESULTS NEGATIVE; Status: F Test: INFLUENZA A RAPID SCR by ICA; Value: Comments:; Status: F Test: INFLUENZA B RAPID SCR by ICA; Value: INFLUENZA B RESULTS NEGATIVE; Status: F Test Note: ; The Influenza test is a direct rapid immunoassay for the qualitative detection of Influenza viral antigen. Cell culture (Viral Culture) testing should be considered to confirm NEGATIVE results and to assist in detecting other viruses that can provide similar clinical symptoms. Please contact the lab within 24 hours ([phone]) if confirmatory testing is desired. Lab Order: TSH with Free T4; SPEC'M 09/19/16 13:55 Test: THYROID STIMULATING HORMONE; Value: 2.370; Range: 0.358-3.740; Units: uIU/ML; Status: F Test: FREE T4; Value: 1.12; Range: 0.76-1.46; Units: NG/DL; Status: F Radiology Order: CT Head Without Contrast Test: CT Head Without Contrast REASON FOR EXAMINATION: Trauma; HEAD CT WITHOUT CONTRAST:; ; HISTORY: Trauma.; ; FINDINGS: Digital frontal and lateral professional wrestler views are unremarkable. Bone window; settings demonstrate an intact bony calvarium. No skull fracture is seen. The; visualized paranasal sinuses are clear. No intraorbital abnormality is; appreciated.; ; On soft tissue window settings, the lateral, third, and fourth ventricles are; normal in size and position. The iglesias-white differentiation pattern is normal; above and below the tentorium. There is no evidence of intracranial hemorrhage.; No extra-axial fluid collection is seen.; ; IMPRESSION:; ; Negative noncontrast head CT.; ; ; Signed by; Aguilar Reddy MD 09/19/2016 07:28 P; Radiology Order: EKG-ADULT Test: EKG-ADULT REASON FOR EXAMINATION: Syncope; Stationary ECG Study; [facility] - ED; ; Test Date: 2016-09-19; Pat Name: EDU CERVANTES Department:; Room: -; Gender: F Warp Clamper: rn; : 1945 Requested By: Joel Espana; Order Number: [id number] Reading MD: Magda Clemens; Measurements; Intervals [place]; Rate: 108 P: 41; AL: 124 QRS: 22; QRSD: 89 T: 76; QT: 330; QTc: 443; Interpretive Statements; SINUS TACHYCARDIA; POSSIBLE LEFT ATRIAL ENLARGEMENT; SEPTAL MYOCARDIAL INFARCTION, PROBABLY OLD; NSTTW ABNORMALITY; NO PRIOR FOR COMPARISON; Electronically Signed On 09-20-2016 8:35:33 EST by Magda Clemens; Radiology Order: CT Maxilofacial W/out Contrast Test: CT Maxilofacial W/out Contrast REASON FOR EXAMINATION: Trauma; MAXILLOFACIAL CT STUDY WITHOUT CONTRAST:; ; HISTORY: Trauma.; ; TECHNIQUE: Helical scanning is acquired and contiguous [address]; images are acquired. The scan range is from the top of the frontal sinuses; through the mandible. Coronal and sagittal multiplanar reformation images are; generated as well.; ; CT FINDINGS: There is right frontal soft tissue scalp swelling. No frontal bone; or frontal sinus fracture is seen. The paranasal sinuses are clear. The zygomatic; arches are intact. Orbital margins are normal. No nasal bone fracture is seen.; Inferior maxillary spine is intact. No mandibular fracture is seen. There is no; evidence of intraorbital, facial or intracranial hematoma.; ; IMPRESSION:; ; Right frontal scalp swelling. No fracture seen.; ; ; Signed by; Aguilar Reddy MD 09/19/2016 07:28 P; Radiology Order: Chest, 2 View (pa\E\lat) Test: Chest, 2 View (pa\E\lat) REASON FOR EXAMINATION: Cough; PA and lateral chest radiograph 09/19/2016; ; Indication: Cough; ; Comparison: PA and lateral chest 02/17/2006; ; Findings: The cardiomediastinal silhouette is normal. Lungs are clear; bilaterally. Bones and soft tissues are within normal limits.; ; Impression: No acute cardiopulmonary process; ; ; Signed by; Shira Mancuso MD 09/20/2016 02:35 P; Outcome: 19:04 Discharge ordered by Provider. pc 19:43 Patient left the ED. ms2 19:43 Discharge Assessment: patient administered narcotics - no. The following High Risk ms2 Discharge criteria are identified: None. Discharged to home ambulatory, with significant other. Condition: stable. Discharge instructions given to patient, Instructed on discharge instructions, follow up and referral plans. Demonstrated understanding of instructions, Pt was receptive of discharge instructions/ teaching. No special radiology studies were completed. Property sent home with patient. Signatures: Dispatcher [employer] EDMS Joel Coelho MD MD pc Sobkiewicz, Michele, RN RN ms2 Ruth Ann Roberts RN RN [facility] Blessing Hutchison, Jorge Reg gb oRger Menjivar zo Keith Joseph, RIVET MACHINE OPERATOR RIVET MACHINE OPERATOR kb5 Ashly Velez RN RN [facility] Val Wallace, RIVET MACHINE OPERATOR RIVET MACHINE OPERATOR elp Allen Kwok rn1 Corrections: (The following items were deleted from the chart) 16:24 16:18 NS 0.9% 1000 ml IV at bolus in left antecubital ms2 ms2 21:34 20:15 The patient / caregiver is instructed regarding the plan of care and ED course. ms2 ms2 21:34 20:15 supervisor webbing on. Pulse ox on. NIBP on. ms2 ms2 21:34 20:15 IV is intact, is free of redness or swelling. ms2 ms2 21:34 20:15 General: Appears in no apparent distress, comfortable, Behavior is cooperative, ms2 pleasant, ms2 21:34 20:15 Pain: Denies pain. ms2 ms2 21:34 20:15 Neurological: Level of Consciousness is awake, alert, obeys commands, ms2 ms2 21:34 20:15 Cardiovascular: Rhythm is sinus tachycardia ms2 ms2 21:34 20:15 Respiratory: No deficits noted. ms2 ms2 21:34 20:15 Derm: Skin is pink, warm & dry. ms2 ms2 21:34 20:15 Musculoskeletal: Range of motion intact in all extremities. ms2 ms2 21:36 18:20 IV ms2 ms2 Chart Complete MTDD
--- NOTE | 2016-09-23 09:46 | EDDOCDS ---
Physician Documentation [facility] Name: Aileen Cervantes Age: 71 yrs Sex: Female : 1945 Arrival Date: 09/19/2016 Time: 13:16 Bed 19 Private MD: Mamie Tiwari PA-C Disposition: 09/19 16:13 Critical Care: Critical care not applicable. pc Disposition: 09/19/16 19:04 Discharged to Home/Self Care. Impression: Syncope and collapse - vasovagal episode, Dehydration - resolved, Contusion of scalp - right forehead, Contusion of nose, Abrasion of nose, Acute upper respiratory infection, unspecified - viral. - Condition is Stable. - Discharge Instructions: Contusion, Syncope, Upper Respiratory Infection, Adult, Viral Infections. - Medication Reconciliation, Local Pharmacy Hours form. - Follow up: Mamie Tiwari RPA-C; When: Call to arrange an appointment; Reason: Continuance of care. - Problem is new. - Symptoms have improved. HPI: 14:48 This 71 yrs old Female presents to ER via Wheelchair with complaints of pc Syncope. 14:48 The history is obtained from the patient, the patient's spouse. She has had a cough for pc 4 days, using multiple OTC meds, believing she caught it from her ill granddaughter. (recent admission and had "2 viruses on a test".) She awoke feeling nauseated this morning, after not having any appetite yesterday and not eating anything. She walked into the bathroom and felt like she would be pass out and fell forward onto the floor, striking a large plant. She had a brief LOC but remembers the entire incident. Her spouse help her back up to her feet and she took 2 steps back towards her bed and fell face first onto the floor without defensive reactions. She struck her face on the floor and had a brief LOC of"seconds". She was assisted back into bed and has been fine since, except for her non-productive cough and her forehead contusion. Her PCP directed her here. At their worst, the symptoms were mild. In the emergency department, the symptoms are unchanged. The patient has not experienced similar symptoms in the past. The patient has been recently seen by their primary care provider. Historical: - Allergies: Keflex; Morphine; - Home Meds: 1. levothyroxine 88 mcg Oral cap 1 cap once daily 2. aspirin 81 mg Oral chew 1 tab once daily 3. triametarene- hctz 37.5mg/25mg daily 4. allopurinol 100 mg Oral tab once daily 5. Nexium 40 mg Oral cpDR 1 cap once daily 6. atorvastatin 40 mg oral tab 1 tab once daily 7. colarys 0.6mg as needed - PMHx: Thyroid problem; Hypertension; Pancreatitis; GERD; - PSHx: Cholecystectomy; - The history from nurses notes was reviewed: and I agree with what is documented. - Social history: Smoking status: Patient states was never smoker of tobacco. No barriers to communication noted, The patient speaks fluent Lao, Speaks appropriately for age. - : The pt / caregiver states he / she is not on anticoagulants. Home medication list is obtained from the patient. - Hospitalizations: : No recent hospitalization is reported. - Exposure Risk Screening:: None identified. - Immunization history:: All immunizations up-to-date. - Family history: Not pertinent. - Social history:: the patient is a non-smoker, the patient does not drink alcohol. ROS: 14:48 All systems are negative except as listed. pc Exam: 14:48 General Appearance: no acute distress, alert. pc 14:48 EENT: small hematoma above the right eyebrow nasal contusion and abrasion. No septal hematoma. No forehead bony pain, no nasal bone pain, no facial pain.. 14:48 Neck: The exam reveals no acute abnormalities. ROM is normal and painless. No nuchal rigidity is noted.. Nexus criteria for suspected c-spine injury is negative. 14:48 Respiratory: no respiratory distress, chest non-tender, Breath sounds: rhonchi, in the left posterior lower lobe. 14:48 CVS: regular rhythm, normal S1 and S2, no murmurs, strong peripheral pulses, the patient is tachycardic, at 110 bpm. 14:48 Abdomen: soft, non-tender, no organomegaly, normal bowel sounds. 14:48 Back: normal inspection. 14:48 Skin: skin color is normal, warm, dry. 14:48 Extremities: The extremities have a grossly normal appearance, are non-tender, without acute ROM abnormalities. 14:48 Neuro: oriented x 3, cranial nerves normal as tested, no motor deficits, no sensory deficits. 14:48 Psych: normal mood. Vital Signs: 13:19 BP 156 / 84; Pulse 113; Resp 18; Temp 98.9; Pulse Ox 98% on R/A; Weight 75.3 kg / elp 166.01 lbs; Height 5 ft. 6 in. (167.64 cm); Pain 6/10; 15:38 BP 151 / 73 Standing; Pulse 116; Resp 20 S; ms2 15:38 BP 155 / 83 Supine; Pulse 99; Resp 20 S; Pulse Ox 95% on R/A; ms2 15:38 BP 146 / 67 Sitting; Pulse 110; Resp 20 S; Pulse Ox 94% on R/A; ms2 17:40 BP 161 / 82; Pulse 96; Resp 20 S; Pulse Ox 96% on R/A; ms2 19:43 BP 143 / 83; Pulse 98; Resp 20 S; Temp 97.5(T); Pulse Ox 96% on R/A; ms2 13:19 Body Mass Index 26.79 (75.30 kg, 167.64 cm) elp 15:38 dr coelho aware of vs ms2 MDM: 14:20 Wood [employer]uer/Pulse Ox/q 15 min VS ordered. pc 14:20 IV Saline Lock ordered. pc 14:20 Orthostatic VS ordered. pc 14:20 Rhythm Strip to chart ordered. pc 14:20 Obtain sample by nasopharyngeal swab ordered. pc 14:21 Basic Metabolic Profile Ordered. EDMS 14:21 CBC with Diff Ordered. EDMS 14:21 Cardiac Injury Profile Ordered. EDMS 14:21 Troponin Ordered. EDMS 14:21 TSH with Free T4 Ordered. EDMS 14:21 -Influenza A&B Rapid Antigen - Nose Ordered. EDMS 14:21 CT Head Without Contrast Ordered. EDMS 14:22 ECG WITH READING ER PHYS+CARDIAG ordered. EDMS 14:22 CT Maxilofacial W/out Contrast Ordered. EDMS 14:22 Chest, 2 View (pa\\E\\lat) Ordered. EDMS 14:48 Differential Diagnosis: vasovagal syncope; URI r/o pneumonia. Plan: labs, EKG, imaging. pc Test interpretation: EKG. 15:10 CBC with Diff Reviewed. pc 15:10 Cardiac Injury Profile Reviewed. pc 15:10 Basic Metabolic Profile Reviewed. pc 15:10 Troponin Reviewed. pc 15:10 -Influenza A&B Rapid Antigen - Nose Reviewed. pc 15:10 TSH with Free T4 Reviewed. pc 16:13 Data reviewed: old medical records, vital signs, nurses notes, EKG(s), lab test pc results, all radiology studies and available results. Test interpretation: LAB - all labs as ordered have been reviewed, interpreted and considered in the overall management of the clinical presentation; X-RAY - interpreted by Radiologist and personally reviewed, 2 view chest, no acute disease, interpreted by Radiologist and personally reviewed, Head CT; mild forehead STS, Maxillo-Facial CT; normal. 16:15 CT Head Without Contrast Reviewed. pc 16:15 CT Maxilofacial W/out Contrast Reviewed. pc 16:15 NS 0.9% 1000 ml IV at bolus once ordered. pc 16:21 Financial registration complete. zo 16:35 [facility] Payment Agreement was scanned into [employer] and attached to record. zo 19:01 The patient has been re-examined and re-evaluated. The patient's symptoms have markedly pc improved after treatment. Disposition: The historical points, examination findings, and any diagnostic results supporting the provided diagnosis, were discussed with the patient or legal guardian. The need for outpatient follow up with the provider listed on their discharge instructions was discussed. They were encouraged to return to [facility], or the nearest ED, if symptoms worsen/persist, or for any other questions/concerns. 09/20 12:05 ECG/EKG was scanned into [employer] and attached to record. EC/06 14:48 Rate is 108 beats/min. Rhythm is regular, Sinus tachycardia. QRS [place] is Normal. [place] pc interval is normal. QRS interval is normal. QT interval is normal. No Q waves. T waves are Normal. No ST changes noted. Clinical impression: Sinus tachycardia and PRWP. Administered Medications: 16:18 Drug: NS 0.9% 1000 ml [sodium chloride 0.9 % intravenous solution] Route: IV; Rate: ms2 bolus; Site: right antecubital; Signatures: Dispatcher [employer] EDMS Joel Coelho MD MD pc Sobkiewicz, Michele, RN RN ms2 Ruth Ann Roberts RN RN [facility] Kianna, Blessing, Reg Reg gb [place], Zoeann zo The chart was reviewed and I authenticate all verbal orders and agree with the evaluation and treatment provided.Corrections: (The following items were deleted from the chart) 16:15 16:13 The patient has been re-examined and re-evaluated. The clinical presentation did pc not require any ED treatment or interventions. pc 19:01 16:13 Disposition: The historical points, examination findings, and any diagnostic pc results supporting the provided diagnosis, were discussed with the patient or legal guardian. The need for outpatient follow up with the provider listed on their discharge instructions was discussed. They were encouraged to return to [facility], or the nearest ED, if symptoms worsen/persist, or for any other questions/concerns. pc Attachments: 16:35 [facility] Payment Agreement zo 09/20 12:05 ECG/EKG gb Chart Complete MTDD
--- NOTE | 2016-09-23 09:46 | EDDOCDS ---
Physician Documentation [facility] Name: Aileen Cervantes Age: 71 yrs Sex: Female : 1945 Arrival Date: 09/19/2016 Time: 13:16 Bed 19 Private MD: Mamie Tiwari PA-C Disposition: 09/19 16:13 Critical Care: Critical care not applicable. pc Disposition: 09/19/16 19:04 Discharged to Home/Self Care. Impression: Syncope and collapse - vasovagal episode, Dehydration - resolved, Contusion of scalp - right forehead, Contusion of nose, Abrasion of nose, Acute upper respiratory infection, unspecified - viral. - Condition is Stable. - Discharge Instructions: Contusion, Syncope, Upper Respiratory Infection, Adult, Viral Infections. - Medication Reconciliation, Local Pharmacy Hours form. - Follow up: Mamie Tiwari RPA-C; When: Call to arrange an appointment; Reason: Continuance of care. - Problem is new. - Symptoms have improved. HPI: 14:48 This 71 yrs old Female presents to ER via Wheelchair with complaints of pc Syncope. 14:48 The history is obtained from the patient, the patient's spouse. She has had a cough for pc 4 days, using multiple OTC meds, believing she caught it from her ill granddaughter. (recent admission and had "2 viruses on a test".) She awoke feeling nauseated this morning, after not having any appetite yesterday and not eating anything. She walked into the bathroom and felt like she would be pass out and fell forward onto the floor, striking a large plant. She had a brief LOC but remembers the entire incident. Her spouse help her back up to her feet and she took 2 steps back towards her bed and fell face first onto the floor without defensive reactions. She struck her face on the floor and had a brief LOC of"seconds". She was assisted back into bed and has been fine since, except for her non-productive cough and her forehead contusion. Her PCP directed her here. At their worst, the symptoms were mild. In the emergency department, the symptoms are unchanged. The patient has not experienced similar symptoms in the past. The patient has been recently seen by their primary care provider. Historical: - Allergies: Keflex; Morphine; - Home Meds: 1. levothyroxine 88 mcg Oral cap 1 cap once daily 2. aspirin 81 mg Oral chew 1 tab once daily 3. triametarene- hctz 37.5mg/25mg daily 4. allopurinol 100 mg Oral tab once daily 5. Nexium 40 mg Oral cpDR 1 cap once daily 6. atorvastatin 40 mg oral tab 1 tab once daily 7. colarys 0.6mg as needed - PMHx: Thyroid problem; Hypertension; Pancreatitis; GERD; - PSHx: Cholecystectomy; - The history from nurses notes was reviewed: and I agree with what is documented. - Social history: Smoking status: Patient states was never smoker of tobacco. No barriers to communication noted, The patient speaks fluent Romansh, Speaks appropriately for age. - : The pt / caregiver states he / she is not on anticoagulants. Home medication list is obtained from the patient. - Hospitalizations: : No recent hospitalization is reported. - Exposure Risk Screening:: None identified. - Immunization history:: All immunizations up-to-date. - Family history: Not pertinent. - Social history:: the patient is a non-smoker, the patient does not drink alcohol. ROS: 14:48 All systems are negative except as listed. pc Exam: 14:48 General Appearance: no acute distress, alert. pc 14:48 EENT: small hematoma above the right eyebrow nasal contusion and abrasion. No septal hematoma. No forehead bony pain, no nasal bone pain, no facial pain.. 14:48 Neck: The exam reveals no acute abnormalities. ROM is normal and painless. No nuchal rigidity is noted.. Nexus criteria for suspected c-spine injury is negative. 14:48 Respiratory: no respiratory distress, chest non-tender, Breath sounds: rhonchi, in the left posterior lower lobe. 14:48 CVS: regular rhythm, normal S1 and S2, no murmurs, strong peripheral pulses, the patient is tachycardic, at 110 bpm. 14:48 Abdomen: soft, non-tender, no organomegaly, normal bowel sounds. 14:48 Back: normal inspection. 14:48 Skin: skin color is normal, warm, dry. 14:48 Extremities: The extremities have a grossly normal appearance, are non-tender, without acute ROM abnormalities. 14:48 Neuro: oriented x 3, cranial nerves normal as tested, no motor deficits, no sensory deficits. 14:48 Psych: normal mood. Vital Signs: 13:19 BP 156 / 84; Pulse 113; Resp 18; Temp 98.9; Pulse Ox 98% on R/A; Weight 75.3 kg / elp 166.01 lbs; Height 5 ft. 6 in. (167.64 cm); Pain 6/10; 15:38 BP 151 / 73 Standing; Pulse 116; Resp 20 S; ms2 15:38 BP 155 / 83 Supine; Pulse 99; Resp 20 S; Pulse Ox 95% on R/A; ms2 15:38 BP 146 / 67 Sitting; Pulse 110; Resp 20 S; Pulse Ox 94% on R/A; ms2 17:40 BP 161 / 82; Pulse 96; Resp 20 S; Pulse Ox 96% on R/A; ms2 19:43 BP 143 / 83; Pulse 98; Resp 20 S; Temp 97.5(T); Pulse Ox 96% on R/A; ms2 13:19 Body Mass Index 26.79 (75.30 kg, 167.64 cm) elp 15:38 dr coelho aware of vs ms2 MDM: 14:20 Supervisor [employer]/Pulse Ox/q 15 min VS ordered. pc 14:20 IV Saline Lock ordered. pc 14:20 Orthostatic VS ordered. pc 14:20 Rhythm Strip to chart ordered. pc 14:20 Obtain sample by nasopharyngeal swab ordered. pc 14:21 Basic Metabolic Profile Ordered. EDMS 14:21 CBC with Diff Ordered. EDMS 14:21 Cardiac Injury Profile Ordered. EDMS 14:21 Troponin Ordered. EDMS 14:21 TSH with Free T4 Ordered. EDMS 14:21 -Influenza A&B Rapid Antigen - Nose Ordered. EDMS 14:21 CT Head Without Contrast Ordered. EDMS 14:22 ECG WITH READING ER PHYS+CARDIAG ordered. EDMS 14:22 CT Maxilofacial W/out Contrast Ordered. EDMS 14:22 Chest, 2 View (pa\\E\\lat) Ordered. EDMS 14:48 Differential Diagnosis: vasovagal syncope; URI r/o pneumonia. Plan: labs, EKG, imaging. pc Test interpretation: EKG. 15:10 CBC with Diff Reviewed. pc 15:10 Cardiac Injury Profile Reviewed. pc 15:10 Basic Metabolic Profile Reviewed. pc 15:10 Troponin Reviewed. pc 15:10 -Influenza A&B Rapid Antigen - Nose Reviewed. pc 15:10 TSH with Free T4 Reviewed. pc 16:13 Data reviewed: old medical records, vital signs, nurses notes, EKG(s), lab test pc results, all radiology studies and available results. Test interpretation: LAB - all labs as ordered have been reviewed, interpreted and considered in the overall management of the clinical presentation; X-RAY - interpreted by Radiologist and personally reviewed, 2 view chest, no acute disease, interpreted by Radiologist and personally reviewed, Head CT; mild forehead STS, Maxillo-Facial CT; normal. 16:15 CT Head Without Contrast Reviewed. pc 16:15 CT Maxilofacial W/out Contrast Reviewed. pc 16:15 NS 0.9% 1000 ml IV at bolus once ordered. pc 16:21 Financial registration complete. zo 16:35 [facility] Payment Agreement was scanned into [employer] and attached to record. zo 19:01 The patient has been re-examined and re-evaluated. The patient's symptoms have markedly pc improved after treatment. Disposition: The historical points, examination findings, and any diagnostic results supporting the provided diagnosis, were discussed with the patient or legal guardian. The need for outpatient follow up with the provider listed on their discharge instructions was discussed. They were encouraged to return to [facility], or the nearest ED, if symptoms worsen/persist, or for any other questions/concerns. 09/20 12:05 ECG/EKG was scanned into [employer] and attached to record. EC/06 14:48 Rate is 108 beats/min. Rhythm is regular, Sinus tachycardia. QRS [place] is Normal. [place] pc interval is normal. QRS interval is normal. QT interval is normal. No Q waves. T waves are Normal. No ST changes noted. Clinical impression: Sinus tachycardia and PRWP. Administered Medications: 16:18 Drug: NS 0.9% 1000 ml [sodium chloride 0.9 % intravenous solution] Route: IV; Rate: ms2 bolus; Site: right antecubital; Signatures: Dispatcher [employer] EDMS Joel Coelho MD MD pc Sobkiewicz, Michele, RN RN ms2 Ruth Ann Roberts RN RN [facility] Kianna, Blessing, Reg Reg gb [place], Zoeann zo The chart was reviewed and I authenticate all verbal orders and agree with the evaluation and treatment provided.Corrections: (The following items were deleted from the chart) 16:15 16:13 The patient has been re-examined and re-evaluated. The clinical presentation did pc not require any ED treatment or interventions. pc 19:01 16:13 Disposition: The historical points, examination findings, and any diagnostic pc results supporting the provided diagnosis, were discussed with the patient or legal guardian. The need for outpatient follow up with the provider listed on their discharge instructions was discussed. They were encouraged to return to [facility], or the nearest ED, if symptoms worsen/persist, or for any other questions/concerns. pc Attachments: 16:35 [facility] Payment Agreement zo 09/20 12:05 ECG/EKG gb Chart Complete MTDD
== END 2016-09-19 19:43 | disposition home or self-care (01) ==
LOC: M ED 13:16
DX: S00.03XA Contusion of scalp, initial encounter (principal); S00.83XA Contusion of other part of head, initial encounter; S00.33XA Contusion of nose, initial encounter; S00.31XA Abrasion of nose, initial encounter; R55 Syncope and collapse; J06.9 Acute upper respiratory infection, unspecified; E86.0 Dehydration; W19.XXXA Unspecified fall, initial encounter; Y92.019 Unspecified place in single-family (private) house as the place of occurrence of the external cause; Y93.9 Activity, unspecified; Y99.9 Unspecified external cause status; R94.31 Abnormal electrocardiogram [ECG] [EKG]; E07.9 Disorder of thyroid, unspecified; I10 Essential (primary) hypertension; K21.9 Gastro-esophageal reflux disease without esophagitis; Z79.82 Long term (current) use of aspirin; Z79.899 Other long term (current) drug therapy; Z88.1 Allergy status to other antibiotic agents; Z88.5 Allergy status to narcotic agent

== ENCOUNTER → 2017-01-28 | Outpatient (REF) | payer MEDICARE, OTHER ==
[2017-01-28 12:23] LABS: MEAN CORPUSCULAR HEMOGLOBIN 29.2 pg (27.0-33.0); MEAN CORPUSCULAR HGB CONC 33.3 g/dl (32.0-36.5); MEAN CORPUSCULAR VOLUME 87.6 fl (80.0-96.0); RED CELL DISTRIBUTION WIDTH 13.4 % (11.5-14.5); WHITE BLOOD COUNT 7.8 K/mm3 (4.0-10.0)
[2017-01-28 12:43] LABS: ALBUMIN 3.7 GM/DL (3.2-5.2); ALBUMIN/GLOBULIN RATIO 0.95 (1.00-1.93); ALKALINE PHOSPHATASE 93 U/L (45-117); ALT/SGPT 28 U/L (12-78); ANION GAP 8 MEQ/L (8-16); AST/SGOT 23 U/L (15-37); BILIRUBIN,TOTAL 0.4 MG/DL (0.2-1.0); BLOOD UREA NITROGEN 12 MG/DL (7-18); CALCIUM LEVEL 8.7 MG/DL (8.8-10.2); CARBON DIOXIDE LEVEL 31 MEQ/L (21-32); CHLORIDE LEVEL 103 MEQ/L (98-107); CREATININE FOR GFR 0.89 MG/DL (0.55-1.02); FREE T4 1.02 NG/DL (0.76-1.46); GLOMERULAR FILTRATION RATE > 60.0 (>45); GLUCOSE, FASTING 131 MG/DL (80-110); POTASSIUM SERUM 3.8 MEQ/L (3.5-5.1); SODIUM LEVEL 142 MEQ/L (136-145); TOTAL PROTEIN 7.6 GM/DL (6.4-8.2)
== END ==
LOC: M SFHCCLAY 08:16
PROVIDERS: ATTEND Physician Assistant
DX: E03.9 Hypothyroidism, unspecified (principal); I10 Essential (primary) hypertension; R73.03 Prediabetes; E55.9 Vitamin D deficiency, unspecified

== ENCOUNTER → 2017-06-09 | Outpatient (REF) | payer MEDICARE, OTHER ==
[2017-06-09 12:33] LABS: ALBUMIN 3.8 GM/DL (3.2-5.2); ALBUMIN/GLOBULIN RATIO 1.06 (1.00-1.93); ALKALINE PHOSPHATASE 92 U/L (45-117); ALT/SGPT 22 U/L (12-78); ANION GAP 7 MEQ/L (8-16); AST/SGOT 18 U/L (15-37); BILIRUBIN,TOTAL 0.3 MG/DL (0.2-1.0); BLOOD UREA NITROGEN 17 MG/DL (7-18); CALCIUM LEVEL 9.3 MG/DL (8.8-10.2); CARBON DIOXIDE LEVEL 31 MEQ/L (21-32); CHLORIDE LEVEL 103 MEQ/L (98-107); CREATININE FOR GFR 0.97 MG/DL (0.55-1.02); GLOMERULAR FILTRATION RATE > 60.0 (>39); GLUCOSE, FASTING 115 MG/DL (83-110); POTASSIUM SERUM 3.8 MEQ/L (3.5-5.1); SODIUM LEVEL 141 MEQ/L (136-145); TOTAL PROTEIN 7.4 GM/DL (6.4-8.2)
== END ==
LOC: M SFHCCLAY 08:20
PROVIDERS: ATTEND Physician Assistant
DX: E11.9 Type 2 diabetes mellitus without complications (principal)

== ENCOUNTER → 2017-08-31 | Outpatient (CLI) | payer MEDICARE, OTHER ==
--- NOTE | 2017-08-31 15:14 | REPMRS ---
Patient History The patient states she has not had a clinical breast exam in over a year. Patient is postmenopausal and has history of squamous cell skin cancer at age 70. Family history of colorectal cancer in maternal uncle. Digital Woman Screen Mammo: August 31, 2017 - Exam #: [id number] Bilateral CC and MLO view(s) were taken. Technologist: Eneida Phelan, Technologist Prior study comparison: August 11, 2016, digital woman screen mammo performed at [facility] to [facility]. June 27, 2015, digital woman screen mammo performed at [facility] to [facility]. FINDINGS: There are scattered fibroglandular densities. There has been no change in the appearance of the mammogram from the prior studies. There is a mild amount of residual fibroglandular tissue which is fairly symmetric. There is no interval development of dominant mass, architectural distortion, or clustered microcalcification suggestive of malignancy. ASSESSMENT: BI-RADS/ACR category 1 mammogram. Negative. Recommendation Routine screening mammogram in 1 year (for women over age 40). This mammogram was interpreted with the aid of an FDA-approved computer-aided dectection system. Electronically Signed By: Alexis Mcleod MD 08/31/17 [id number]
--- NOTE | 2017-09-02 09:20 | DEXA ---
AP SPINE L1 - L4 1.638 3.6 5.3 LT FEMUR TOTAL 1.056 0.4 1.9 RT FEMUR TOTAL 1.043 0.3 1.8 TOTAL BODY TOTAL OTHER COMMENTS: Normal bone densitometry of the spine and hips. The increased density of the spine does represent a significant change. The decreased density of the left hip does not represent a significant change. The density of the spine has increased 11.8% since the initial exam on 2001. The spine density has increased 6.7% since the most recent exam on 07/21/2012. The density of the left hip has decreased 11.0% since the initial exam on 2001. The density of the left hip has decreased 1.4% since the most recent exam on 03/2012. The density of the right hip has decreased 4.7% since the initial exam on 2001. The density of the right hip has increased 0.0% since the most recent exam on . FOLLOW-UP: Recommendation for the next bone density exam: 5 years. INGRID
== END ==
LOC: M WHC 13:03
PROVIDERS: ATTEND Physician Assistant
DX: Z12.31 Encounter for screening mammogram for malignant neoplasm of breast (principal); Z13.820 Encounter for screening for osteoporosis; Z78.0 Asymptomatic menopausal state
CPT/HCPCS: 77080; G0202

== ENCOUNTER → 2018-02-16 | Outpatient (REF) | payer MEDICARE, OTHER ==
[2018-02-16 11:47] LABS: TOTAL 25(OH) VITAMIN D 17.9 NG/ML (30.0-100.0)
[2018-02-16 11:59] LABS: ALBUMIN 3.7 GM/DL (3.2-5.2); ALBUMIN/GLOBULIN RATIO 0.97 (1.00-1.93); ALKALINE PHOSPHATASE 93 U/L (45-117); ALT/SGPT 23 U/L (12-78); ANION GAP 5 MEQ/L (8-16); AST/SGOT 20 U/L (7-37); BILIRUBIN,TOTAL 0.2 MG/DL (0.2-1.0); BLOOD UREA NITROGEN 15 MG/DL (7-18); CALCIUM LEVEL 8.9 MG/DL (8.8-10.2); CARBON DIOXIDE LEVEL 31 MEQ/L (21-32); CHLORIDE LEVEL 106 MEQ/L (98-107); CHOLESTEROL LEVEL 110 MG/DL (<200); CREATININE FOR GFR 0.93 MG/DL (0.55-1.30); GLOMERULAR FILTRATION RATE > 60.0 (>39); GLUCOSE, FASTING 112 MG/DL (70-100); HDL CHOLESTEROL 50 MG/DL (>40); LDL CHOLESTEROL 38.4 MG/DL (<100); NON-HDL-C 60 MG/DL; POTASSIUM SERUM 3.9 MEQ/L (3.5-5.1); SODIUM LEVEL 142 MEQ/L (136-145); TOTAL PROTEIN 7.5 GM/DL (6.4-8.2); TRIGLYCERIDES LEVEL 108 MG/DL (<150)
[2018-02-16 12:07] LABS: ESTIMATED AVERAGE GLUCOSE 146 MG/DL (60-110); HEMOGLOBIN A1c 6.7 %
[2018-02-16 12:12] LABS: MALB URINE SIEMENS 12.4 MG/L; MAU/CREAT RATIO 7.4 MCG/MG (0.0-30.0)
== END ==
LOC: M SFHCCLAY 07:21
DX: E11.9 Type 2 diabetes mellitus without complications (principal); E78.4 Other hyperlipidemia; E55.9 Vitamin D deficiency, unspecified
CPT/HCPCS: 80053

== ENCOUNTER → 2018-08-31 | Outpatient (REF) | payer MEDICARE, OTHER ==
[2018-08-31 17:46] LABS: BLOOD UREA NITROGEN 15 MG/DL (7-18); CALCIUM LEVEL 8.7 MG/DL (8.8-10.2); CARBON DIOXIDE LEVEL 29 MEQ/L (21-32); CHLORIDE LEVEL 103 MEQ/L (98-107); CREATININE FOR GFR 0.95 MG/DL (0.55-1.30); FREE T4 0.93 NG/DL (0.76-1.46); GLOMERULAR FILTRATION RATE > 60.0 (>39); GLUCOSE, FASTING 114 MG/DL (70-100); POTASSIUM SERUM 3.7 MEQ/L (3.5-5.1); SODIUM LEVEL 141 MEQ/L (136-145)
== END ==
LOC: M SFHCCLAY 08:29
PROVIDERS: ATTEND Physician Assistant
DX: E03.9 Hypothyroidism, unspecified (principal); E11.9 Type 2 diabetes mellitus without complications

== ENCOUNTER → 2018-09-23 | Outpatient (CLI) | payer MEDICARE, OTHER ==
--- NOTE | 2018-09-23 11:41 | REPMRS ---
Patient History The patient states she has not had a clinical breast exam in over a year. Patient is postmenopausal and has history of other cancer at age 70. Family history of colorectal cancer in maternal uncle. No Hormone Replacement Therapy Digital Woman Screen Mammo: September 23, 2018 - Exam #: [id number] Bilateral CC and MLO view(s) were taken. Technologist: Eneida Phelan, Technologist Prior study comparison: August 31, 2017, digital woman screen mammo performed at [facility]. August 11, 2016, digital woman screen mammo performed at [facility]. June 27, 2015, digital woman screen mammo performed at [facility] to [facility]. FINDINGS: There are scattered fibroglandular densities. There has been no change in the appearance of the mammogram from the prior studies. There is a mild amount of scattered fibroglandular density which is fairly symmetric. There is no interval development of dominant mass, architectural distortion, or clustered microcalcification suggestive of malignancy. 3-D tomosynthesis shows no additional findings. Assessment: BI-RADS/ACR category 1 mammogram. Negative. Recommendation Routine screening mammogram in 1 year (for women over age 40). This patient's Lifetime Breast Cancer RIsk is estimated at %. This mammogram was interpreted with the aid of an FDA-approved computer-aided dectection system. Electronically Signed By: Azeem Reddy MD 09/23/18 [id number]
== END ==
LOC: M WHC 10:50
PROVIDERS: ATTEND Physician Assistant
DX: Z12.31 Encounter for screening mammogram for malignant neoplasm of breast (principal)

== ENCOUNTER → 2018-11-25 | Outpatient (CLI) | payer MEDICARE, OTHER ==
--- NOTE | 2018-11-25 11:08 | REP ---
PA and lateral chest: Comparison is 09/19/2016. The lung johnson are hyperinflated, slightly greater than on the comparison study. There are no focal infiltrates. No pleural effusions. Cardiac size is normal. The garo, mediastinum, skeletal structures are unremarkable. There are surgical clips in the abdominal right upper quadrant. Impression: Hyperinflation, nonspecific, that there is a gastric inspiratory effort versus COPD. Otherwise, negative PA and lateral chest Electronically Signed by Alexis Harris MD 11/25/2018 10:59 A
== END ==
LOC: M ADAMS 08:25
PROVIDERS: ATTEND Physician Assistant
DX: R05 Cough (principal); R63.4 Abnormal weight loss; E55.9 Vitamin D deficiency, unspecified; E11.9 Type 2 diabetes mellitus without complications
CPT/HCPCS: 71046; 80053; 82306; 82550; 82607; 82728; 82746; 83036; 83550; 84439; 84443; 85027; 85652; 86140; 93005; G0463

== ENCOUNTER → 2018-11-25 | Outpatient (REF) | payer MEDICARE, OTHER ==
[2018-11-25 12:35] LABS: HEMATOCRIT 31.8 % (36.0-47.0); HEMOGLOBIN 9.3 g/dl (12.0-15.5); MEAN CORPUSCULAR HGB CONC 29.2 g/dl (32.0-36.5); MEAN CORPUSCULAR VOLUME 68.4 fl (80.0-96.0); PLATELET COUNT, AUTOMATED 537 10^3/uL (150-450); RED BLOOD COUNT 4.65 10^6/uL (4.00-5.40); WHITE BLOOD COUNT 9.6 10^3/uL (4.0-10.0)
[2018-11-25 12:48] LABS: ALT/SGPT 22 U/L (12-78); BILIRUBIN,TOTAL 0.2 MG/DL (0.2-1.0); BLOOD UREA NITROGEN 16 MG/DL (7-18); CALCIUM LEVEL 9.6 MG/DL (8.8-10.2); CARBON DIOXIDE LEVEL 30 MEQ/L (21-32); CHLORIDE LEVEL 105 MEQ/L (98-107); CPK CREATINE PHOSPHOKINASE 122 U/L (26-192); FREE T4 1.18 NG/DL (0.76-1.46); GLOMERULAR FILTRATION RATE > 60.0 (>39); GLUCOSE, FASTING 90 MG/DL (70-100); SODIUM LEVEL 141 MEQ/L (136-145); TOTAL PROTEIN 7.9 GM/DL (6.4-8.2)
[2018-11-25 12:49] LABS: FOLATE 6.3 NG/ML; TOTAL 25(OH) VITAMIN D 18.1 NG/ML (30.0-100.0); VITAMIN B12 LEVEL 505 PG/ML
[2018-11-25 13:38] LABS: ERYTHROCYTE SEDIMENTATION RATE 43 mm/hr (0-30)
[2018-11-26 09:20] LABS: C REACTIVE PROTEIN QUANTITATIV < 0.30 MG/DL (0.00-0.30); FERRITIN 6 NG/ML (8-252); IRON (FE) 14 UG/DL (50-170); PERCENT SATURATION 2.8 % (13.2-45.0); TOTAL IRON BINDING CAPACITY 506 UG/DL (250-450)
== END ==
LOC: M SFHCADAM 07:48
PROVIDERS: ATTEND Physician Assistant
DX: E11.9 Type 2 diabetes mellitus without complications (principal); M79.10 Myalgia, unspecified site; R05 Cough; R63.4 Abnormal weight loss; E55.9 Vitamin D deficiency, unspecified; E03.9 Hypothyroidism, unspecified

== ENCOUNTER → 2019-01-14 | Outpatient (REF) | payer MEDICARE, OTHER ==
[2019-01-14 12:17] LABS: C REACTIVE PROTEIN QUANTITATIV < 0.30 MG/DL (0.00-0.30); FERRITIN 10 NG/ML (8-252); IRON (FE) 23 UG/DL (50-170); PERCENT SATURATION 5.1 % (13.2-45.0); TOTAL IRON BINDING CAPACITY 447 UG/DL (250-450)
== END ==
LOC: M SFHCCLAY 08:28
PROVIDERS: ATTEND Physician Assistant
DX: D64.9 Anemia, unspecified (principal); R70.0 Elevated erythrocyte sedimentation rate

== ENCOUNTER → 2019-01-14 | Outpatient (REF) | payer MEDICARE, OTHER | LOC: M LABDRAWC 10:51 | PROVIDERS: ATTEND Internal Medicine Gastroenterology | DX: D50.9 Iron deficiency anemia, unspecified (principal); R70.0 Elevated erythrocyte sedimentation rate ==

== ENCOUNTER → 2019-01-18 | Outpatient (CLI) | payer MEDICARE, OTHER ==
[~2019-01-18] MED LIST: E-Z-PAQUE 96% w/w SUSP 176GM BTL As Ordered ONE
--- NOTE | 2019-01-18 21:09 | REP ---
Examination Requested: SBFT Reason For Exam: Iron-deficiency anemia Small Bowel Follow Through The procedure was performed by XAVI Hill, under the direct supervision of Dr. Reddy. The images were reviewed with Dr. Reddy. The barium was administered and the barium column was followed through the small bowel to the level of the terminal ileum. Small bowel transit time was approximately 120 minutes. During fluoroscopy gentle palpation shows all loops are freely mobile and pliable. There are no fixed or angulated loops. The small bowel mucosal pattern is normal in course and caliber. There is no transition to set suggest a partial small-bowel obstruction. Spot filming of the terminal ileum shows it to be unremarkable. Impression; 1. Unremarkable small bowel follow-through 0.5 minutes of fluoroscopy time was utilized for this procedure. Reviewed by XAVI Olivier 01/18/2019 03:18 P Electronically Signed by Aguilar Reddy MD 01/18/2019 09:01 P
== END ==
LOC: M RAD 07:57
PROVIDERS: ATTEND Internal Medicine Gastroenterology
DX: D50.9 Iron deficiency anemia, unspecified (principal)

== ENCOUNTER → 2019-01-19 | Outpatient (REF) | payer MEDICARE, OTHER ==
[~2019-01-19] MED LIST changes: +ALLO100T PO; +ASPI81CH33 PO; +ATOR40TA75 PO; -E-Z-PAQUE 96% w/w SUSP 176GM BTL As Ordered ONE; +FLON1SPR; +GLUCTAB2 PO; +IRON65TA2 PO; +LEVO50TA5 PO; +METO1TAB32 PO; +OMEP10CASR PO; +TRIA37.53 PO
[2019-01-19 19:19] LABS: HEMATOCRIT 35.3 % (36.0-47.0); HEMOGLOBIN 10.5 g/dl (12.0-15.5); MEAN CORPUSCULAR HGB CONC 29.7 g/dl (32.0-36.5); MEAN CORPUSCULAR VOLUME 73.8 fl (80.0-96.0); PLATELET COUNT, AUTOMATED 478 10^3/uL (150-450); RED BLOOD COUNT 4.78 10^6/uL (4.00-5.40); WHITE BLOOD COUNT 10.2 10^3/uL (4.0-10.0)
== END ==
LOC: M SFHCADAM 16:39
PROVIDERS: ATTEND Physician Assistant
DX: D50.9 Iron deficiency anemia, unspecified (principal)
CPT/HCPCS: 85027; G0463

== ENCOUNTER 2019-02-14 08:53 | Day surgery (SDC) | payer MEDICARE, OTHER ==
[~2019-02-14] VITALS: Ht 167.6 cm; Wt 75.7 kg
[~2019-02-14 08:53] MED LIST changes: +LIDOCAINE 2% INJ 100 MG/5 ML SDV (FOR ANES.) As Ordered ONE; +NS 1,000 ML IV ONE; +PROPOFOL 200 MG/20 ML VIAL As Ordered ONE
[2019-02-14] MEDS ORDERED: PROPOFOL 200 MG/20 ML VIAL As Ordered ONE (09:58)
--- NOTE | 2019-02-14 10:02 | ROOR ---
Patient Name: Aileen Cervantes Procedure Date: 02/14/2019 9:21 AM Date of : 1945 Age: 73 Room: [facility] Gender: Female Note Status: Finalized Procedure: Upper GI endoscopy Indications: Iron deficiency anemia Providers: Hola NATION MD Referring MD: LALO Romero Requesting Provider: Medicines: Monitored Anesthesia Care Complications: No immediate complications. Procedure: Pre-Anesthesia Assessment: - The heart rate, respiratory rate, oxygen saturations, blood pressure, adequacy of pulmonary ventilation, and response to care were monitored throughout the procedure. The Endoscope was introduced through the mouth, and advanced to the third part of duodenum. The upper GI endoscopy was accomplished without difficulty. The patient tolerated the procedure well. Findings: A medium-sized hiatal hernia was present. The entire examined stomach was normal. The examined esophagus was normal. The examined duodenum was normal. Biopsies for histology were taken with a cold forceps for evaluation of celiac disease. Impression: - Small/medium-sized hiatal hernia. - Normal stomach. - Normal esophagus. - Normal examined duodenum. Biopsied. Recommendation: - Perform a colonoscopy today. Hola Nation MD Hola NATION MD 02/14/2019 10:01:37 AM Electronically signed by Hola NATION MD Number of Addenda: 0 Note Initiated On: 02/14/2019 9:21 AM Estimated Blood Loss: Estimated blood loss: none.
--- NOTE | 2019-02-14 10:06 | ROOR ---
Patient Name: Aileen Cervantes Procedure Date: 02/14/2019 9:21 AM Date of : 1945 Age: 73 Room: [facility] Gender: Female Note Status: Finalized Procedure: Colonoscopy Indications: Iron deficiency anemia Providers: Hola NATION MD Referring MD: LALO Romero Requesting Provider: Medicines: Monitored Anesthesia Care Complications: No immediate complications. Procedure: Pre-Anesthesia Assessment: - The heart rate, respiratory rate, oxygen saturations, blood pressure, adequacy of pulmonary ventilation, and response to care were monitored throughout the procedure. The Colonoscope was introduced through the anus and advanced to 10 cm into the ileum. The colonoscopy was performed without difficulty. The patient tolerated the procedure well. The quality of the bowel preparation was good. Findings: The perianal and digital rectal examinations were normal. The colon (entire examined portion) was moderately redundant. A 5 mm polyp was found in the appendiceal orifice. The polyp was sessile. The polyp was removed with a cold snare. Resection and retrieval were complete. Mild sigmoid diverticulosis and small internal hemorrhoids. The exam was otherwise normal throughout the examined colon. The terminal ileum appeared normal. Impression: - Redundant colon. - One 5 mm polyp at the appendiceal orifice, removed with a cold snare. Resected and retrieved. - Mild sigmoid diverticulosis and small internal hemorrhoids. - The colon was otherwise normal. - The examined portion of the ileum was normal. Recommendation: - Telephone endoscopist for pathology results in 2 weeks. - Continue present medications. - Recommend an iron supplement daily. Hola Nation MD Hola NATION MD 02/14/2019 10:05:43 AM Electronically signed by Hola NATION MD Number of Addenda: 0 Note Initiated On: 02/14/2019 9:21 AM Estimated Blood Loss: Estimated blood loss: none.
[2019-02-14 10:20] VITALS: BP 146/57
== END 2019-02-14 10:33 | disposition home or self-care (01) ==
LOC: M OPP 08:53
PROVIDERS: ATTEND Internal Medicine Gastroenterology
DX: D12.0 Benign neoplasm of cecum (principal); Q43.8 Other specified congenital malformations of intestine; K64.8 Other hemorrhoids; K57.30 Diverticulosis of large intestine without perforation or abscess without bleeding; K44.9 Diaphragmatic hernia without obstruction or gangrene; D50.9 Iron deficiency anemia, unspecified

== ENCOUNTER → 2019-05-03 | Outpatient (REF) | payer MEDICARE, OTHER ==
[~2019-05-03] MED LIST changes: -LIDOCAINE 2% INJ 100 MG/5 ML SDV (FOR ANES.) As Ordered ONE; -NS 1,000 ML IV ONE; -PROPOFOL 200 MG/20 ML VIAL As Ordered ONE
[2019-05-03 12:00] LABS: HEMATOCRIT 45.1 % (36.0-47.0); HEMOGLOBIN 14.6 g/dl (12.0-15.5); MEAN CORPUSCULAR HEMOGLOBIN 27.8 pg (27.0-33.0); MEAN CORPUSCULAR HGB CONC 32.4 g/dl (32.0-36.5); MEAN CORPUSCULAR VOLUME 85.9 fl (80.0-96.0); PLATELET COUNT, AUTOMATED 335 10^3/uL (150-450); RED BLOOD COUNT 5.25 10^6/uL (4.00-5.40); WHITE BLOOD COUNT 8.3 10^3/uL (4.0-10.0)
[2019-05-03 12:07] LABS: PERCENT SATURATION 27.5 % (13.2-45.0)
== END ==
LOC: M SFHCCLAY 07:46
PROVIDERS: ATTEND Physician Assistant
DX: D50.9 Iron deficiency anemia, unspecified (principal)

== ENCOUNTER → 2019-05-27 | Outpatient (REF) | payer MEDICARE, OTHER ==
[2019-05-27 11:56] LABS: ALBUMIN 3.9 GM/DL (3.2-5.2); ALT/SGPT 41 U/L (12-78); BILIRUBIN,TOTAL 0.5 MG/DL (0.2-1.0); BLOOD UREA NITROGEN 14 MG/DL (7-18); CALCIUM LEVEL 9.4 MG/DL (8.8-10.2); CARBON DIOXIDE LEVEL 30 MEQ/L (21-32); CHLORIDE LEVEL 103 MEQ/L (98-107); CREATININE FOR GFR 0.96 MG/DL (0.55-1.30); FERRITIN 73 NG/ML (8-252); FREE T4 1.01 NG/DL (0.76-1.46); GLOMERULAR FILTRATION RATE > 60.0 (>39); GLUCOSE, FASTING 108 MG/DL (70-100); IRON (FE) 123 UG/DL (50-170); PERCENT SATURATION 34.2 % (13.2-45.0); SODIUM LEVEL 141 MEQ/L (136-145); TOTAL IRON BINDING CAPACITY 360 UG/DL (250-450); TOTAL PROTEIN 7.4 GM/DL (6.4-8.2)
[2019-05-27 12:02] LABS: HEMATOCRIT 46.4 % (36.0-47.0); HEMOGLOBIN 15.4 g/dl (12.0-15.5); MEAN CORPUSCULAR HEMOGLOBIN 28.4 pg (27.0-33.0); MEAN CORPUSCULAR HGB CONC 33.2 g/dl (32.0-36.5); MEAN CORPUSCULAR VOLUME 85.5 fl (80.0-96.0); PLATELET COUNT, AUTOMATED 344 10^3/uL (150-450); RED BLOOD COUNT 5.43 10^6/uL (4.00-5.40); WHITE BLOOD COUNT 7.8 10^3/uL (4.0-10.0)
[2019-05-27 14:22] LABS: HEMOGLOBIN A1c 6.3 %
== END ==
LOC: M SFHCCLAY 09:12
PROVIDERS: ATTEND Physician Assistant
DX: D50.9 Iron deficiency anemia, unspecified (principal); E11.9 Type 2 diabetes mellitus without complications; I10 Essential (primary) hypertension; E03.9 Hypothyroidism, unspecified

== ENCOUNTER → 2020-04-05 | Outpatient (REF) | payer MEDICARE, OTHER ==
[2020-04-05 12:00] LABS: HEMOGLOBIN 15.3 g/dl (12.0-15.5); MEAN CORPUSCULAR HEMOGLOBIN 29.7 pg (27.0-33.0); MEAN CORPUSCULAR HGB CONC 33.3 g/dl (32.0-36.5); MEAN CORPUSCULAR VOLUME 89.3 fl (80.0-96.0); PLATELET COUNT, AUTOMATED 362 10^3/uL (150-450); RED BLOOD COUNT 5.15 10^6/uL (4.00-5.40); WHITE BLOOD COUNT 8.6 10^3/uL (4.0-10.0)
== END ==
LOC: M SFHCADAM 08:21
PROVIDERS: ATTEND Physician Assistant
DX: D50.9 Iron deficiency anemia, unspecified (principal); E11.9 Type 2 diabetes mellitus without complications; I10 Essential (primary) hypertension; E03.9 Hypothyroidism, unspecified

== ENCOUNTER → 2020-04-13 | Outpatient (CLI) | payer MEDICARE, OTHER ==
--- NOTE | 2020-05-08 14:22 | REPMRS ---
Patient History The patient states she has not had a clinical breast exam in over a year. Patient is postmenopausal and has history of other cancer at age 70. Family history of colorectal cancer in maternal uncle. No Hormone Replacement Therapy Digital Woman Screen Mammo: April 13, 2020 - Exam #: [id number] Bilateral CC and MLO view(s) were taken. Technologist: Nessa Ventura, Technologist Prior study comparison: September 23, 2018, bilateral digital woman screen mammo performed at [facility]. August 31, 2017, digital woman screen mammo performed at [facility]. August 11, 2016, digital woman screen mammo performed at [facility]. FINDINGS: There are scattered fibroglandular densities. The Volpara volumetric breast density category is:B. There has been no change in the appearance of the mammogram from the prior studies. There is a mild amount of scattered fibroglandular density which is fairly symmetric. There is no interval development of dominant mass, architectural distortion, or grouped microcalcification suggestive of malignancy. 3-D tomosynthesis shows no additional findings. Report was delayed due to a protracted computer network disruption experienced by this facility. Assessment: BI-RADS/ACR category 1 mammogram. Negative Mammogram. Recommendation Routine screening mammogram of both breasts in 1 year (for women over age 40). This patient's Lifetime Breast Cancer Risk is estimated at 3.4 %. This mammogram was interpreted with the aid of an FDA-approved computer-aided dectection system. Electronically Signed By: Azeem Reddy MD 05/08/20 1585
== END ==
LOC: M WHC 11:42
PROVIDERS: ATTEND Family Medicine
DX: Z12.31 Encounter for screening mammogram for malignant neoplasm of breast (principal)

== ENCOUNTER → 2021-02-05 | Outpatient (REF) | payer MEDICARE, OTHER ==
[2021-02-05 16:39] LABS: HEMATOCRIT 45.8 % (36.0-47.0); HEMOGLOBIN 14.8 g/dl (12.0-15.5); MEAN CORPUSCULAR HEMOGLOBIN 28.5 pg (27.0-33.0); MEAN CORPUSCULAR HGB CONC 32.3 g/dl (32.0-36.5); MEAN CORPUSCULAR VOLUME 88.2 fl (80.0-96.0); PLATELET COUNT, AUTOMATED 416 10^3/uL (150-450); RED BLOOD COUNT 5.19 10^6/uL (4.00-5.40); WHITE BLOOD COUNT 10.3 10^3/uL (4.0-10.0)
[2021-02-05 17:13] LABS: ALBUMIN 4.3 GM/DL (3.2-5.2); ALT/SGPT 31 U/L (12-78); BILIRUBIN,TOTAL 0.4 MG/DL (0.2-1.0); BLOOD UREA NITROGEN 12 MG/DL (7-18); CALCIUM LEVEL 9.5 MG/DL (8.8-10.2); CARBON DIOXIDE LEVEL 29 MEQ/L (21-32); CHLORIDE LEVEL 104 MEQ/L (98-107); CREATININE FOR GFR 0.84 MG/DL (0.55-1.30); GLOMERULAR FILTRATION RATE > 60.0 (>39); GLUCOSE, FASTING 78 MG/DL (70-100); POTASSIUM SERUM 4.1 MEQ/L (3.5-5.1); SODIUM LEVEL 141 MEQ/L (136-145); TOTAL PROTEIN 8.1 GM/DL (6.4-8.2)
[2021-02-05 17:20] LABS: FREE T4 1.31 NG/DL (0.76-1.46); THYROID STIMULATING HORMONE 0.351 uIU/ML (0.358-3.740); TOTAL 25(OH) VITAMIN D 22.4 NG/ML (30.0-100.0); VITAMIN B12 LEVEL 357 PG/ML
== END ==
LOC: M SFHCADAM 13:36
PROVIDERS: ATTEND Physician Assistant
DX: K21.9 Gastro-esophageal reflux disease without esophagitis (principal); D50.9 Iron deficiency anemia, unspecified; E11.9 Type 2 diabetes mellitus without complications; M25.552 Pain in left hip; R13.14 Dysphagia, pharyngoesophageal phase; E03.9 Hypothyroidism, unspecified; Z79.899 Other long term (current) drug therapy
CPT/HCPCS: 80053; 82306; 82607; 82746; 83036; 84439; 84443; 85027; G0463

== ENCOUNTER → 2021-04-09 | Outpatient (CLI) | payer MEDICARE, OTHER | LOC: M WHC 15:03 | PROVIDERS: ATTEND Physician Assistant | DX: Z53.9 Procedure and treatment not carried out, unspecified reason (principal) ==

== ENCOUNTER → 2021-04-23 | Outpatient (CLI) | payer MEDICARE, OTHER ==
--- NOTE | 2021-04-23 13:57 | REP ---
INDICATION: OSTEOARTHRITIS, LEFT KNEE\. COMPARISON: None. TECHNIQUE: AP and lateral views FINDINGS: Narrowing of medial compartment of the joint. No fracture or dislocation. Fibrous cortical defect proximal shaft of the tibia. Soft tissues unremarkable. Patella well seated. IMPRESSION: Degenerative change with narrowing medial compartment of the joint. <Electronically signed by Zuhair Loya > 04/23/21 [id number]
== END ==
LOC: M SOG 08:26
PROVIDERS: ATTEND Orthopaedic Surgery Adult Reconstructive Orthopaedic Surgery
DX: M17.12 Unilateral primary osteoarthritis, left knee (principal)

== ENCOUNTER → 2021-05-08 | Outpatient (CLI) | payer MEDICARE, OTHER ==
--- NOTE | 2021-05-08 14:30 | REPMRS ---
Patient History The patient states she has not had a clinical breast exam in over a year. Patient is postmenopausal and has history of other cancer at age 70. Family history of colorectal cancer in maternal uncle. Took hormonal contraceptives for 20 years beginning at age 22. Patient states no breast complaints today. Patient has signed MRS History Sheet. Digital Woman Screen Mammo: May 08, 2021 - Exam #: [id number] Bilateral CC and MLO view(s) were taken. Technologist: Aaliyah Pearson, Director Safety Prior study comparison: April 13, 2020, bilateral digital woman screen mammo performed at [facility]. September 23, 2018, bilateral digital woman screen mammo performed at [facility]. August 31, 2017, digital woman screen mammo performed at [facility]. FINDINGS: There are scattered fibroglandular densities. The Volpara volumetric breast density category is:B. There has been no change in the appearance of the mammogram from the prior studies. There is a mild amount of scattered fibroglandular density which is fairly symmetric. There is no interval development of dominant mass, architectural distortion, or grouped microcalcification suggestive of malignancy. 3-D tomosynthesis shows no additional findings. Assessment: BI-RADS/ACR category 1 mammogram. Negative Mammogram. Recommendation Routine screening mammogram of both breasts in 1 year (for women over age 40). This patient's [facility] Lifetime Breast Cancer Risk is estimated at 3.0 %. This mammogram was interpreted with the aid of an FDA-approved computer-aided dectection system. Electronically Signed By: Azeem Reddy MD 05/08/21 0749
--- NOTE | 2021-05-08 14:38 | DEXAMM ---
INDICATION: Z13.820 OSTEOPOROSIS. COMPARISON: Most recent comparison study August 31, 2017. Most remote March 30, 2002. TECHNIQUE: Bone density was measured using dual-energy x-ray absorptionmetry (DEXA). FINDINGS: AP SPINE L1-L4 BMD 1.663 g/cm2 Young Adult T-Score 3.8 Age Matched Z-Score 5.5. LT FEMUR, TOTAL BMD 0.999 g/cm2 Young Adult T-Score -0.1 Age Matched Z-Score 1.6. LT NECK BMD 0.991 g/cm2 Young Adult T-Score -0.3 Age Matched Z-Score 1.5. RT FEMUR, TOTAL BMD spur 1.006 g/cm2 Young Adult T-Score 0.0 Age Matched Z-Score 1.7. RT NECK BMD 0.977 g/cm2 Young Adult T-Score -0.4 Age Matched Z-Score 1.4. IMPRESSION: There is normal bone density of the spine. There is normal bone density of the left hip. There is normal bone density of the right hip. The density of the spine has increased 13.5% since the initial exam on March 30, 2002. The density of the spine increased 1.5% since most recent exam on August 31, 2017. The density of the left hip has decreased 15.8% since initial exam on March 30, 2002. The density of the left hip has decreased 5.4% since most recent exam on August 31, 2017. The density of the right hip has decreased 8.1% since the initial exam on March 30, 2002. The density of the right hip has decreased 3.5% since the most recent exam on August 31, 2017. FOLLOW-UP: Recommendation for the next bone density exam: 5-10 years. <Electronically signed by Azeem Reddy > 05/08/21 [id number]
== END ==
LOC: M WHC 13:23
PROVIDERS: ATTEND Physician Assistant
DX: Z12.31 Encounter for screening mammogram for malignant neoplasm of breast (principal); Z13.820 Encounter for screening for osteoporosis; M81.0 Age-related osteoporosis without current pathological fracture

== ENCOUNTER → 2021-06-11 | Outpatient (CLI) | payer MEDICARE, OTHER ==
[~2021-06-11] MED LIST changes: +E-Z-GAS II EFFERVESCENT PACKET (SODIUM BICARB./CITRIC ACID/SIMETHICONE) As Ordered ONE; +E-Z-HD 98% w/w 340GM SUSP BTL As Ordered ONE; +E-Z-PAQUE 96% w/w SUSP 176GM BTL As Ordered ONE
--- NOTE | 2021-06-11 17:44 | REP ---
INDICATION: R13.10 DYSPAHGIA. COMPARISON: Esophagram dated 05/19/2015 TECHNIQUE: This procedure was performed by Shoshana Best [facility], under the direct supervision of Dr. Reddy. Images were reviewed with Dr. Reddy prior to dictation. Liquid barium and gas producing crystals were given in the erect position, as well as liquid barium in the prone oblique position in order to perform a double contrast esophagram examination. FINDINGS: A single view PA chest x-ray is submitted as a weaver needle loom film. The superior mediastinal structures are midline. The heart size is within normal limits. The lungs are clear. The oral and pharyngeal stages of deglutition demonstrated penetration in the beginning of the exam. During the remainder of the exam aspiration was visualized without a cough response. Esophageal transport is prompt and efficient and there is no evidence of esophagitis, stricture, or mucosal ring. There is evidence of a small hiatal hernia. Gastroesophageal reflux to the level of the omari was visualized. IMPRESSION: 1. Esophageal penetration and aspiration without a cough response. 2. Small hiatal hernia. 3. Gastroesophageal reflux to the level of the omari. 0.3 minutes of fluoroscopy time was utilized for this procedure. Some fluoroscopic images are performed with last image hold technology. These images require no additional radiation. <Electronically signed by Shoshana Best > 06/11/21 1624 <Electronically signed by Azeem Reddy > 06/11/21 [id number]
== END ==
LOC: M RAD 08:14
PROVIDERS: ATTEND Internal Medicine Gastroenterology
DX: R13.10 Dysphagia, unspecified (principal)

== ENCOUNTER → 2022-02-20 | Outpatient (REF) | payer MEDICARE, OTHER ==
[~2022-02-20] MED LIST changes: -E-Z-GAS II EFFERVESCENT PACKET (SODIUM BICARB./CITRIC ACID/SIMETHICONE) As Ordered ONE; -E-Z-HD 98% w/w 340GM SUSP BTL As Ordered ONE; -E-Z-PAQUE 96% w/w SUSP 176GM BTL As Ordered ONE; -TRIA37.53 PO; +TRIA37.577 PO
[2022-02-20 11:47] LABS: HEMATOCRIT 37.2 % (36.0-47.0); HEMOGLOBIN 11.8 g/dl (12.0-15.5); MEAN CORPUSCULAR HEMOGLOBIN 25.9 pg (27.0-33.0); MEAN CORPUSCULAR HGB CONC 31.7 g/dl (32.0-36.5); MEAN CORPUSCULAR VOLUME 81.6 fl (80.0-96.0); PLATELET COUNT, AUTOMATED 378 10^3/uL (150-450); RED BLOOD COUNT 4.56 10^6/uL (4.00-5.40); WHITE BLOOD COUNT 7.4 10^3/uL (4.0-10.0)
[2022-02-20 12:00] LABS: HEMOGLOBIN A1c 6.1 %
[2022-02-20 12:24] LABS: ALBUMIN 3.9 GM/DL (3.2-5.2); ALT/SGPT 24 U/L (12-78); BILIRUBIN,TOTAL 0.3 MG/DL (0.2-1.0); BLOOD UREA NITROGEN 14 MG/DL (7-18); CALCIUM LEVEL 9.8 MG/DL (8.8-10.2); CARBON DIOXIDE LEVEL 30 MEQ/L (21-32); CHLORIDE LEVEL 105 MEQ/L (98-107); CHOLESTEROL LEVEL 139 MG/DL (<200); CHOLESTEROL RISK RATIO 2.355 (<5); CREATININE FOR GFR 0.88 MG/DL (0.55-1.30); FREE T4 0.98 NG/DL (0.76-1.46); GLOMERULAR FILTRATION RATE > 60.0 (>39); GLUCOSE, FASTING 113 MG/DL (70-100); HDL CHOLESTEROL 59 MG/DL (>40); LDL CHOLESTEROL 51 MG/DL (<100); NON-HDL-C 80 MG/DL; POTASSIUM SERUM 4.2 MEQ/L (3.5-5.1); SODIUM LEVEL 142 MEQ/L (136-145); TOTAL 25(OH) VITAMIN D 24.6 NG/ML (30.0-100.0); TOTAL PROTEIN 7.5 GM/DL (6.4-8.2); TRIGLYCERIDES LEVEL 143 MG/DL (<150)
[2022-02-20 12:31] LABS: MALB URINE SIEMENS 8.6 MG/L; MAU/CREAT RATIO 6.6 MCG/MG (0.0-30.0)
== END ==
LOC: M SFHCCLAY 08:27
PROVIDERS: ATTEND Physician Assistant
DX: E03.9 Hypothyroidism, unspecified (principal); I10 Essential (primary) hypertension; E11.9 Type 2 diabetes mellitus without complications; E78.49 Other hyperlipidemia; E55.9 Vitamin D deficiency, unspecified

== ENCOUNTER → 2022-05-09 | Outpatient (CLI) | payer MEDICARE, OTHER | LOC: M WHC 11:28 | PROVIDERS: ATTEND Physician Assistant | DX: Z12.31 Encounter for screening mammogram for malignant neoplasm of breast (principal) ==

== ENCOUNTER → 2022-06-18 | Outpatient (REF) | payer MEDICARE, OTHER ==
[2022-06-18 11:52] LABS: BASO # 0.1 10^3/uL (0.0-0.2); BASO % 0.2 % (0.0-1.0); EOS % 0.1 % (0.0-3.0); HEMATOCRIT 37.3 % (36.0-47.0); HEMOGLOBIN 11.3 g/dl (12.0-15.5); LYMPH # 3.6 10^3/uL (1.5-5.0); LYMPH % 17.3 % (24.0-44.0); MEAN CORPUSCULAR HEMOGLOBIN 24.4 pg (27.0-33.0); MEAN CORPUSCULAR HGB CONC 30.3 g/dl (32.0-36.5); MEAN CORPUSCULAR VOLUME 80.6 fl (80.0-96.0); MONO # 1.4 10^3/uL (0.0-0.8); MONO % 6.9 % (2.0-8.0); NEUTROPHILS # 15.4 10^3/uL (1.5-8.5); NEUTROPHILS % 74.8 % (36.0-66.0); PLATELET COUNT, AUTOMATED 512 10^3/uL (150-450); RED BLOOD COUNT 4.63 10^6/uL (4.00-5.40); WHITE BLOOD COUNT 20.6 10^3/uL (4.0-10.0)
[2022-06-18 12:24] LABS: PERCENT SATURATION 8.7 % (13.2-45.0)
== END ==
LOC: M SFHCCLAY 08:59
PROVIDERS: ATTEND Physician Assistant
DX: D50.9 Iron deficiency anemia, unspecified (principal)

== ENCOUNTER → 2022-06-19 | Outpatient (REF) | payer MEDICARE, OTHER ==
[2022-06-19 17:27] LABS: BASO # 0.1 10^3/uL (0.0-0.2); BASO % 0.8 % (0.0-1.0); EOS # 0.2 10^3/uL (0.0-0.5); EOS % 1.6 % (0.0-3.0); HEMATOCRIT 37.1 % (36.0-47.0); HEMOGLOBIN 11.5 g/dl (12.0-15.5); LYMPH # 3.8 10^3/uL (1.5-5.0); LYMPH % 33.7 % (24.0-44.0); MEAN CORPUSCULAR HEMOGLOBIN 24.9 pg (27.0-33.0); MEAN CORPUSCULAR VOLUME 80.3 fl (80.0-96.0); MONO # 1.2 10^3/uL (0.0-0.8); MONO % 10.6 % (2.0-8.0); NEUTROPHILS # 5.9 10^3/uL (1.5-8.5); NEUTROPHILS % 52.9 % (36.0-66.0); PLATELET COUNT, AUTOMATED 478 10^3/uL (150-450); RED BLOOD COUNT 4.62 10^6/uL (4.00-5.40); WHITE BLOOD COUNT 11.2 10^3/uL (4.0-10.0)
[2022-06-19 18:03] LABS: ALBUMIN 3.8 GM/DL (3.2-5.2); BILIRUBIN,TOTAL 0.3 MG/DL (0.2-1.0); CALCIUM LEVEL 9.2 MG/DL (8.8-10.2); CREATININE FOR GFR 1.02 MG/DL (0.55-1.30); GLOMERULAR FILTRATION RATE 56.2 (>39); POTASSIUM SERUM 4.4 MEQ/L (3.5-5.1); TOTAL PROTEIN 7.5 GM/DL (6.4-8.2)
== END ==
LOC: M SFHCCLAY 09:56
PROVIDERS: ATTEND Physician Assistant
DX: D72.829 Elevated white blood cell count, unspecified (principal); D50.9 Iron deficiency anemia, unspecified

== ENCOUNTER → 2023-03-03 | Outpatient (REF) | payer MEDICARE, OTHER ==
[2023-03-03 11:43] LABS: BASO # 0.1 10^3/uL (0.0-0.2); BASO % 1.1 % (0.0-1.0); EOS # 0.7 10^3/uL (0.0-0.5); EOS % 7.6 % (0.0-3.0); HEMATOCRIT 42.3 % (36.0-47.0); HEMOGLOBIN 13.6 g/dl (12.0-15.5); LYMPH # 1.9 10^3/uL (1.5-5.0); LYMPH % 21.1 % (24.0-44.0); MEAN CORPUSCULAR HEMOGLOBIN 27.9 pg (27.0-33.0); MEAN CORPUSCULAR HGB CONC 32.2 g/dl (32.0-36.5); MEAN CORPUSCULAR VOLUME 86.7 fl (80.0-96.0); MONO # 0.9 10^3/uL (0.0-0.8); MONO % 9.9 % (2.0-8.0); NEUTROPHILS # 5.5 10^3/uL (1.5-8.5); NEUTROPHILS % 59.9 % (36.0-66.0); PLATELET COUNT, AUTOMATED 359 10^3/uL (150-450); RED BLOOD COUNT 4.88 10^6/uL (4.00-5.40); WHITE BLOOD COUNT 9.1 10^3/uL (4.0-10.0)
[2023-03-03 12:08] LABS: IRON (FE) 32 UG/DL (50-170); PERCENT SATURATION 8.8 % (13.2-45.0); TOTAL IRON BINDING CAPACITY 363 UG/DL (250-425)
[2023-03-03 12:09] LABS: ALKALINE PHOSPHATASE 92 U/L (46-116); ALT/SGPT 17 U/L (7.0-40); AST/SGOT 13 U/L (<34); BILIRUBIN,TOTAL 0.3 MG/DL (0.3-1.2); BLOOD UREA NITROGEN 11 MG/DL (9-23); CALCIUM LEVEL 9.5 MG/DL (8.3-10.6); CARBON DIOXIDE LEVEL 30 MMOL/L (20-31); CHLORIDE LEVEL 106 MMOL/L (98-107); CHOLESTEROL LEVEL 132 MG/DL (<200); CHOLESTEROL RISK RATIO 2.34 (<5); CREATININE FOR GFR 0.83 MG/DL (0.55-1.30); GLOMERULAR FILTRATION RATE > 60.0 (>39); GLUCOSE, FASTING 109 MG/DL (74-106); HDL CHOLESTEROL 56.2 MG/DL (>40); NON-HDL-C 75.8 MG/DL; POTASSIUM SERUM 4.3 MMOL/L (3.5-5.1); SODIUM LEVEL 141 MMOL/L (136-145); TOTAL PROTEIN 7.2 G/DL (5.7-8.2); TRIGLYCERIDES LEVEL 139 MG/DL (<150)
[2023-03-03 12:10] LABS: FREE T4 1.11 NG/DL (0.89-1.76)
[2023-03-03 12:11] LABS: THYROID STIMULATING HORMONE 0.307 uIU/ML (0.55-4.78)
[2023-03-03 12:15] LABS: HEMOGLOBIN A1c 6.2 % (4.0-6.0)
== END ==
LOC: M SFHCCLAY 07:27
PROVIDERS: ATTEND Physician Assistant
DX: D50.9 Iron deficiency anemia, unspecified (principal); I10 Essential (primary) hypertension; E03.9 Hypothyroidism, unspecified; E11.9 Type 2 diabetes mellitus without complications; M10.9 Gout, unspecified

== ENCOUNTER → 2023-03-11 | Outpatient (CLI) | payer MEDICARE, OTHER | LOC: M WHC 15:11 | PROVIDERS: ATTEND Physician Assistant | DX: Z12.31 Encounter for screening mammogram for malignant neoplasm of breast (principal) ==

== ENCOUNTER → 2023-03-23 | Outpatient (REF) | payer MEDICARE, OTHER ==
[2023-03-23 17:52] LABS: MAGNESIUM LEVEL 2.1 MG/DL (1.8-2.4)
[2023-03-23 17:53] LABS: C REACTIVE PROTEIN QUANTITATIV < 0.40 MG/DL (<1.0)
[2023-03-23 17:55] LABS: CPK CREATINE PHOSPHOKINASE 98 U/L (34-145)
== END ==
LOC: M SFHCCLAY 13:57
PROVIDERS: ATTEND Physician Assistant
DX: M79.606 Pain in leg, unspecified (principal)

== ENCOUNTER → 2023-05-12 | Outpatient (CLI) | payer MEDICARE, OTHER | LOC: M WHC 15:12 | PROVIDERS: ATTEND Physician Assistant | DX: Z12.31 Encounter for screening mammogram for malignant neoplasm of breast (principal) ==

== ENCOUNTER → 2023-06-17 | Outpatient (REF) | payer MEDICARE, OTHER ==
[2023-06-17 12:13] LABS: THYROID STIMULATING HORMONE 2.783 uIU/ML (0.55-4.78)
== END ==
LOC: M SFHCCLAY 08:20
PROVIDERS: ATTEND Physician Assistant
DX: E03.9 Hypothyroidism, unspecified (principal)

== ENCOUNTER → 2023-07-14 | Outpatient (REF) | payer MEDICARE, OTHER | LOC: M SFHCADAM 09:58 | PROVIDERS: ATTEND Physician Assistant | DX: R05.1 Acute cough (principal) ==

== ENCOUNTER → 2024-03-14 | Outpatient (REF) | payer MEDICARE, OTHER ==
[2024-03-14 12:50] LABS: HEMATOCRIT 38.2 % (36.0-47.0); HEMOGLOBIN 12.4 g/dl (12.0-15.5); MEAN CORPUSCULAR HEMOGLOBIN 27.4 pg (27.0-33.0); MEAN CORPUSCULAR HGB CONC 32.5 g/dl (32.0-36.5); MEAN CORPUSCULAR VOLUME 84.5 fl (80.0-96.0); PLATELET COUNT, AUTOMATED 359 10^3/uL (150-450); RED BLOOD COUNT 4.52 10^6/uL (4.00-5.40); WHITE BLOOD COUNT 7.1 10^3/uL (4.0-10.0)
[2024-03-14 13:20] LABS: URIC ACID 7.1 MG/DL (3.1-7.8)
[2024-03-14 13:24] LABS: ALBUMIN 3.6 G/DL (3.2-5.2); ALKALINE PHOSPHATASE 88 U/L (46-116); ALT/SGPT 14 U/L (7.0-40); AST/SGOT 12 U/L (<34); BILIRUBIN,TOTAL 0.3 MG/DL (0.3-1.2); BLOOD UREA NITROGEN 15 MG/DL (9-23); CALCIUM LEVEL 8.8 MG/DL (8.3-10.6); CARBON DIOXIDE LEVEL 32 MMOL/L (20-31); CHLORIDE LEVEL 108 MMOL/L (98-107); CHOLESTEROL LEVEL 128 MG/DL (<200); CHOLESTEROL RISK RATIO 2.57 (<5); CREATININE FOR GFR 0.89 MG/DL (0.55-1.30); GLOMERULAR FILTRATION RATE > 60.0 (>39); GLUCOSE, FASTING 114 MG/DL (74-106); HDL CHOLESTEROL 49.8 MG/DL (>40); LDL CHOLESTEROL 51.2 MG/DL (<100); NON-HDL-C 78.2 MG/DL; SODIUM LEVEL 143 MMOL/L (136-145); TOTAL PROTEIN 6.8 G/DL (5.7-8.2); TRIGLYCERIDES LEVEL 135 MG/DL (<150)
[2024-03-16 10:30] LABS: HEMOGLOBIN A1c 6.1 % (4.0-6.0)
== END ==
LOC: M SFHCCLAY 07:33
PROVIDERS: ATTEND Physician Assistant
DX: I10 Essential (primary) hypertension (principal); E11.9 Type 2 diabetes mellitus without complications; E78.00 Pure hypercholesterolemia, unspecified; R05.1 Acute cough; E03.9 Hypothyroidism, unspecified; Z23 Encounter for immunization; Z87.39 Personal history of other diseases of the musculoskeletal system and connective tissue

== ENCOUNTER → 2024-03-15 | Outpatient (REF) | payer MEDICARE, OTHER | LOC: M SFHCADAM 12:14 | PROVIDERS: ATTEND Physician Assistant | DX: R73.03 Prediabetes (principal) ==

== ENCOUNTER → 2024-05-13 | Outpatient (CLI) | payer MEDICARE, OTHER | LOC: M WHC 12:58 | PROVIDERS: ATTEND Physician Assistant | DX: Z12.31 Encounter for screening mammogram for malignant neoplasm of breast (principal) ==

== ENCOUNTER → 2025-03-22 | Outpatient (REF) | payer MEDICARE, OTHER ==
[2025-03-22 12:34] LABS: BASO # 0.1 10^3/uL (0.0-0.2); BASO % 1.1 % (0.0-1.0); EOS # 0.5 10^3/uL (0.0-0.5); EOS % 6.0 % (0.0-3.0); LYMPH # 2.1 10^3/uL (1.5-5.0); LYMPH % 26.4 % (24.0-44.0); MONO # 0.8 10^3/uL (0.0-0.8); MONO % 10.5 % (2.0-8.0); NEUTROPHILS # 4.4 10^3/uL (1.5-8.5); NEUTROPHILS % 55.7 % (36.0-66.0); PLATELET COUNT, AUTOMATED 428 10^3/uL (150-450)
[2025-03-22 12:42] LABS: IRON (FE) 57.0 UG/DL (50-170); PERCENT SATURATION 14.1 % (13.2-45.0)
[2025-03-22 12:43] LABS: ALT/SGPT 18.0 U/L (7.0-40); AST/SGOT 23.0 U/L (<34); CALCIUM LEVEL 9.5 MG/DL (8.3-10.6); CARBON DIOXIDE LEVEL 31.0 MMOL/L (20-31); CHLORIDE LEVEL 102.0 MMOL/L (98-107); CHOLESTEROL LEVEL 148.0 MG/DL (<200); CHOLESTEROL RISK RATIO 2.82 (<5); CREATININE FOR GFR 0.88 MG/DL (0.55-1.30); FREE T4 1.19 NG/DL (0.89-1.76); GLOMERULAR FILTRATION RATE 67.6 (>39); LDL CHOLESTEROL 60.4 MG/DL (<100); NON-HDL-C 95.6 MG/DL; POTASSIUM SERUM 3.8 MMOL/L (3.5-5.1); SODIUM LEVEL 144.0 MMOL/L (136-145); TRIGLYCERIDES LEVEL 176.0 MG/DL (<150)
[2025-03-22 12:44] LABS: TOTAL 25(OH) VITAMIN D 29.9 NG/ML (20.0-100.0)
[2025-03-22 12:45] LABS: ESTIMATED AVERAGE GLUCOSE 131.0 MG/DL (60-110); VITAMIN B12 LEVEL 378.0 PG/ML (211-911)
== END ==
LOC: M SFHCCLAY 08:51
PROVIDERS: ATTEND Physician Assistant
DX: E03.9 Hypothyroidism, unspecified (principal); E11.9 Type 2 diabetes mellitus without complications; I10 Essential (primary) hypertension; K21.9 Gastro-esophageal reflux disease without esophagitis; D50.9 Iron deficiency anemia, unspecified; M10.9 Gout, unspecified; E78.00 Pure hypercholesterolemia, unspecified; Z79.899 Other long term (current) drug therapy

== ENCOUNTER → 2025-05-25 | Outpatient (CLI) | payer MEDICARE, OTHER | LOC: M WHC 13:06 | PROVIDERS: ATTEND Physician Assistant | DX: Z12.31 Encounter for screening mammogram for malignant neoplasm of breast (principal); R92.313 Mammographic fatty tissue density, bilateral breasts ==